=== PATIENT | female | born 1990 | race Caucasian/White ===

== ENCOUNTER → 2016-12-26 | Outpatient (CLI) | payer BC ==
[2016-12-26 10:40] LABS: CH 26.9; CHCM 33.2; HCT 37.7 % (34.0-46.0); HDW 2.38; HGB 13.1 gm/dL (11.4-16.0); MCH 28.2 pg (25.0-35.0); MCHC 34.7 g/dL (31.0-37.0); MCV 81.4 fL (80.0-100.0); RBC 4.63 m/uL (3.80-5.40); RDW 13.3 % (11.5-15.5); WBC 9.3 k/uL (3.8-10.6)
[2016-12-26 11:10] LABS: Glucose 83 mg/dL (74-99); Non-African American GFR(MDRD) >60 (>60 ml/min/1.73 sqM)
[2016-12-26 11:36] LABS: Hepatitis B Surface Ag Index 0.04
== END | disposition home or self-care (01) ==
LOC: LABWHC1 09:53
PROVIDERS: ATTEND Obstetrics & Gynecology
DX: Z34.81 Encounter for supervision of other normal pregnancy, first trimester (principal)
CPT/HCPCS: 36415; 82565; 82947; 85027; 86762; 86780; 86850; 86900; 86901; 87340

== ENCOUNTER 2017-01-18 12:15 | Inpatient (IN) | payer BC ==
[2017-01-18] MEDS ORDERED: SODIUM CHLORIDE 0.9% 1,000 ML IV STA (12:44)
[2017-01-18] MEDS ORDERED: ONDANSETRON 4 MG/2 ML VIAL IVP STA (12:44)
[2017-01-18] MEDS ORDERED: ACETAMINOPHEN TAB 500 MG TAB PO STA (12:51)
[2017-01-18 13:28] LABS: Basophils % (A) 0 %; CH 27.9; CHCM 34.3; Eosinophils # (A) 0.1 k/uL (0-0.7); Eosinophils % (A) 0 %; HCT 34.5 % (34.0-46.0); HDW 2.44; HGB 11.6 gm/dL (11.4-16.0); Luc # (Auto) 0.07; Luc % (Auto) 1; Lymphocytes # (A) 0.8 k/uL (1.0-4.8); Lymphocytes % (A) 8 %; MCH 27.5 pg (25.0-35.0); MCHC 33.7 g/dL (31.0-37.0); MCV 81.5 fL (80.0-100.0); Mean Platelet Volume 7.2; Monocytes # (A) 0.2 k/uL (0-1.0); Monocytes % (A) 2 %; Neutrophils # (A) 9.7 k/uL (1.3-7.7); Neutrophils % (A) 89 %; RBC 4.24 m/uL (3.80-5.40); RDW 14.3 % (11.5-15.5); WBC 10.8 k/uL (3.8-10.6); WBC (Perox) 11.26
[2017-01-18 13:34] LABS: Appearance,Urine Turbid (Clear); Bacteria,Urine Many /hpf; Bilirubin,Urine Negative (Negative); Glucose,Urine (UA) Negative (Negative); Ketones,Urine 4+ (Negative); Leukocyte Esterase,Urine Large (Negative); Mucus,Urine Moderate /hpf; Nitrite,Urine Negative (Negative); PH, Urine 7.5 (5.0-8.0); Particle Count 19225; Protein,Urine 2+ (Negative); RBC,Urine 6 /hpf (0-5); Specific Gravity,Urine 1.021 (1.001-1.035); Squamous Epithelial Cell,Urine 61 /hpf (0-4); UA Billing (MACRO vs. MICRO) MICRO; WBC,Urine 25 /hpf (0-5)
[2017-01-18] MEDS ORDERED: METOCLOPRAMIDE 5 MG/ML 2 ML VIAL IVP STA (13:45)
[2017-01-18 13:59] LABS: ALT 19 U/L (9-52); AST 18 U/L (14-36); Alkaline Phosphatase 60 U/L (38-126); Anion Gap 11 mmol/L; Blood Urea Nitrogen 7 mg/dL (7-17); Calcium 9.3 mg/dL (8.4-10.2); Carbon Dioxide 18 mmol/L (22-30); Chloride 105 mmol/L (98-107); Glucose 88 mg/dL (74-99); Non-African American GFR(MDRD) >60 (>60 ml/min/1.73 sqM); Potassium 3.6 mmol/L (3.5-5.1); Sodium 134 mmol/L (137-145); Total Bilirubin 0.6 mg/dL (0.2-1.3)
[2017-01-18] MEDS ORDERED: ONDANSETRON 4 MG/2 ML VIAL IVP PRN (14:29)
[2017-01-18] MEDS ORDERED: NALOXONE 0.4 MG/ML 1 ML VIAL IV PRN (14:29)
--- NOTE | 2017-01-18 14:42 | ED ---
General Adult HPI - General Chief complaint: Headache Stated complaint: Headache, vomiting-16 wks Time Seen by Provider: 01/18/17 12:43 Source: patient, family, RN notes reviewed Mode of arrival: wheelchair - History of Present Illness Initial comments: 27-year-old female presents with one-day history of nausea vomiting, and frontal headache. Patient is currently 16 weeks . Denies any abdominal pain. Denies diarrhea. Her last bowel was yesterday was normal. Is also having fever and chills, she is found to be febrile the emergency department. Denies back pain, denies dysuria. Her headache is primarily frontal associated with some photophobia. She had cough and congestion for the past 4 days, this is currently resolved. Patient states she had 15+ episodes of vomiting, and anytime she eats she is vomiting. Patient called her HOT DIE PICKER who recommended evaluation in the emergency department - Related Data Home Medications Medication Instructions Recorded Confirmed Acetaminophen [Tylenol] 650 mg PO Q4H PRN 01/18/17 01/18/17 Pnv,Calcium 72/Iron/Folic Acid 1 tab PO DAILY 01/18/17 01/18/17 [ Plus Tablet] Allergies Allergy/AdvReac Type Severity Reaction Status Date / Time amoxicillin [Amoxicillin] Allergy Unknown Rash/Hives Verified 01/18/17 13:20 Review of Systems ROS Statement: Those systems with pertinent positive or pertinent negative responses have been documented in the HPI. ROS Other: All systems not noted in ROS Statement are negative. Constitutional: Reports: fever, chills ENT: Denies: throat pain Respiratory: Denies: cough Endocrine: Reports: fatigue Gastrointestinal: Reports: nausea, vomiting. Denies: abdominal pain Past Medical History Additional Past Medical History / Comment(s): Bicornate uterus; Congenital absence of kidney; History of tibia/fibula fracture-left History of Any Multi-Drug Resistant Organisms: None Reported Past Surgical History: Orthopedic Surgery Past Anesthesia/Blood Transfusion Reactions: No Reported Reaction Past Psychological History: No Psychological Hx Reported Smoking Status: Former smoker Past Alcohol Use History: None Reported Past Drug Use History: None Reported - Past Family History Father Family Medical History: No Reported History General Exam General appearance: alert, in no apparent distress Head exam: Present: atraumatic, normocephalic Eye exam: Present: normal appearance, PERRL ENT exam: Present: normal exam, normal oropharynx, mucous membranes dry, other ( Visual erythema or tonsillar swelling) Neck exam: Absent: normal inspection, meningismus Respiratory exam: Present: normal lung sounds bilaterally. Absent: respiratory distress, wheezes Cardiovascular Exam: Present: normal rhythm, tachycardia GI/Abdominal exam: Present: soft, other (Uterus just below the umbilicus). Absent: distended, tenderness, guarding, rebound Extremities exam: Present: normal inspection, normal capillary refill. Absent: pedal edema Neurological exam: Present: alert, oriented X3, CN II-XII intact. Absent: motor sensory deficit Psychiatric exam: Present: normal affect, normal mood Skin exam: Present: warm, dry Course Vital Signs 01/18/17 01/18/17 12:17 13:30 Temperature 101.9 F H 101.9 F H Pulse Rate 118 H 76 Respiratory 18 17 Rate Blood Pressure 120/59 108/65 O2 Sat by Pulse 96 98 Oximetry - Reevaluation(s) Reevaluation #1: 01/18/17 14:39 On reevaluation, after IV hydration, antiemetics, and Tylenol the patient is feeling much better. Headache is resolved. Medical Decision Making - Medical Decision Making 27-year-old female with a one-day history of profound nausea and vomiting as well as fever and chills. Patient is found to have urinary tract infection with many bacteria and elevated white blood cell count. Patient states she does only have one kidney. Urine is also positive for 4+ ketones consistent with dehydration. Urine culture and blood cultures are obtained. Patient is started on IV hydration, and IV antibiotics in the emergency department. Case is discussed with her HOT DIE PICKER, heart tones are obtained in emergency department 160-180. Patient will be admitted for continued IV hydration and IV antibiotics. Diagnosis: Pyelonephritis in - Lab Data Result diagrams: 01/18/17 13:10 01/18/17 13:10 Lab Results 01/18/17 01/18/17 01/18/17 Range/Units 13:10 13:10 13:10 WBC 10.8 H (3.8-10.6) k/uL RBC 4.24 (3.80-5.40) m/uL Hgb 11.6 (11.4-16.0) gm/dL Hct 34.5 (34.0-46.0) % MCV 81.5 (80.0-100.0) fL MCH 27.5 (25.0-35.0) pg MCHC 33.7 (31.0-37.0) g/dL RDW 14.3 (11.5-15.5) % Plt Count 250 (150-450) k/uL Neutrophils % 89 % Lymphocytes % 8 % Monocytes % 2 % Eosinophils % 0 % Basophils % 0 % Neutrophils # 9.7 H (1.3-7.7) k/uL Lymphocytes # 0.8 L (1.0-4.8) k/uL Monocytes # 0.2 (0-1.0) k/uL Eosinophils # 0.1 (0-0.7) k/uL Basophils # 0.0 (0-0.2) k/uL Sodium 134 L (137-145) mmol/L Potassium 3.6 (3.5-5.1) mmol/L Chloride 105 (98-107) mmol/L Carbon Dioxide 18 L (22-30) mmol/L Anion Gap 11 mmol/L BUN 7 (7-17) mg/dL Creatinine 0.41 L (0.52-1.04) mg/dL Est GFR (MDRD) Af Amer >60 (>60 ml/min/1.73 sqM) Est GFR (MDRD) Non-Af >60 (>60 ml/min/1.73 sqM) Glucose 88 (74-99) mg/dL Calcium 9.3 (8.4-10.2) mg/dL Total Bilirubin 0.6 (0.2-1.3) mg/dL AST 18 (14-36) U/L ALT 19 (9-52) U/L Alkaline Phosphatase 60 (38-126) U/L Total Protein 7.0 (6.3-8.2) g/dL Albumin 4.0 (3.5-5.0) g/dL Lipase 40 (23-300) U/L Urine Color Urine Appearance (Clear) Urine pH (5.0-8.0) Ur Specific [place] (1.001-1.035) Urine Protein (Negative) Urine Glucose (UA) (Negative) Urine Ketones (Negative) Urine Blood (Negative) Urine Nitrite (Negative) Urine Bilirubin (Negative) Urine Urobilinogen (<2.0) mg/dL Ur Leukocyte Esterase (Negative) Urine RBC (0-5) /hpf Urine WBC (0-5) /hpf Ur Squamous Epith Cells (0-4) /hpf Urine Bacteria (None) /hpf Urine Mucus (None) /hpf Urine HCG, Qual Detected (Not Detectd) 01/18/17 Range/Units 13:10 WBC (3.8-10.6) k/uL RBC (3.80-5.40) m/uL Hgb (11.4-16.0) gm/dL Hct (34.0-46.0) % MCV (80.0-100.0) fL MCH (25.0-35.0) pg MCHC (31.0-37.0) g/dL RDW (11.5-15.5) % Plt Count (150-450) k/uL Neutrophils % % Lymphocytes % % Monocytes % % Eosinophils % % Basophils % % Neutrophils # (1.3-7.7) k/uL Lymphocytes # (1.0-4.8) k/uL Monocytes # (0-1.0) k/uL Eosinophils # (0-0.7) k/uL Basophils # (0-0.2) k/uL Sodium (137-145) mmol/L Potassium (3.5-5.1) mmol/L Chloride (98-107) mmol/L Carbon Dioxide (22-30) mmol/L Anion Gap mmol/L BUN (7-17) mg/dL Creatinine (0.52-1.04) mg/dL Est GFR (MDRD) Af Amer (>60 ml/min/1.73 sqM) Est GFR (MDRD) Non-Af (>60 ml/min/1.73 sqM) Glucose (74-99) mg/dL Calcium (8.4-10.2) mg/dL Total Bilirubin (0.2-1.3) mg/dL AST (14-36) U/L ALT (9-52) U/L Alkaline Phosphatase (38-126) U/L Total Protein (6.3-8.2) g/dL Albumin (3.5-5.0) g/dL Lipase (23-300) U/L Urine Color Yellow Urine Appearance Turbid H (Clear) Urine pH 7.5 (5.0-8.0) Ur Specific [place] 1.021 (1.001-1.035) Urine Protein 2+ H (Negative) Urine Glucose (UA) Negative (Negative) Urine Ketones 4+ H (Negative) Urine Blood Negative (Negative) Urine Nitrite Negative (Negative) Urine Bilirubin Negative (Negative) Urine Urobilinogen 3.0 (<2.0) mg/dL Ur Leukocyte Esterase Large H (Negative) Urine RBC 6 H (0-5) /hpf Urine WBC 25 H (0-5) /hpf Ur Squamous Epith Cells 61 H (0-4) /hpf Urine Bacteria Many H (None) /hpf Urine Mucus Moderate H (None) /hpf Urine HCG, Qual (Not Detectd) Disposition Clinical Impression: Pyelonephritis affecting in second trimester Disposition: ADMITTED IP TO THIS [facility] Condition: Stable Referrals: None,Stated [Primary Care Provider] - 1-2 days Decision to Admit Reason: Admit from EC Decision Date: 01/18/17 Decision Time: 14:05
[2017-01-18] MEDS: DEXTROSE 5%-0.45% NACL 1,000 ML IV SCH (19:34)
[2017-01-18] MEDS: ACETAMINOPHEN TAB 325 MG TAB PO PRN (19:38)
[2017-01-19] MEDS: DEXTROSE 5%-0.45% NACL 1,000 ML IV SCH (00:40)
[2017-01-19] MEDS: ACETAMINOPHEN TAB 325 MG TAB PO PRN ×3 (00:41→16:03)
[2017-01-19] MEDS ORDERED: GENTAMICIN PER PHARMACY MISCELLANE PRN (07:06)
--- NOTE | 2017-01-19 07:14 | P.OBCN ---
History of Present Illness Consult date: 01/19/17 Reason for consult: early problem Chief complaint: Fever, pyelonephritis History of present illness: This is a 27-year-old female 3 para 1 at approximate 16 weeks who presents to the emergency room with fevers at home up to the 102. She states she started feeling bad on Saturday and just went to bed. By night she was feeling fevers and chills and vomiting unable to hold anything down. She went to the emergency room on Saturday and was noted to have a urinary tract infection along with fevers of 101-102. She denies feeling any flank pain. She currently states she has not had any further vomiting since being admitted. She denies any dysuria. She denies any shortness of breath or chest pain. Review of Systems Constitutional: Reports chills, Reports chronic headaches, Reports fever Ears, nose, mouth and throat: Reports headache, Denies sore throat Cardiovascular: Denies chest pain, Denies shortness of breath Respiratory: Denies cough Gastrointestinal: Reports nausea, Reports vomiting, Denies abdominal pain Genitourinary: Reports Musculoskeletal: Denies low back pain Neurological: Reports headaches, Reports migraines Past Medical History Additional Past Medical History / Comment(s): Bicornate uterus; Congenital absence of kidney; History of tibia/fibula fracture-left History of Any Multi-Drug Resistant Organisms: None Reported Past Surgical History: Orthopedic Surgery Past Anesthesia/Blood Transfusion Reactions: No Reported Reaction Past Psychological History: No Psychological Hx Reported Smoking Status: Former smoker Past Alcohol Use History: None Reported Past Drug Use History: None Reported - Past Family History Father Family Medical History: No Reported History Medications and Allergies Home Medications Medication Instructions Recorded Confirmed Type Acetaminophen [Tylenol] 650 mg PO Q4H PRN 01/18/17 01/18/17 History Pnv,Calcium 72/Iron/Folic Acid 1 tab PO DAILY 01/18/17 01/18/17 History [ Plus Tablet] Allergies Allergy/AdvReac Type Severity Reaction Status Date / Time amoxicillin [Amoxicillin] Allergy Unknown Rash/Hives Verified 01/18/17 18:49 Exam Osteopathic Statement: *. No significant issues noted on an osteopathic structural exam other than those noted in the History and Physical/Consult. - Vital Signs Vital signs: Vital Signs Temp Pulse Pulse Resp BP BP Pulse Ox 01/19/17 00:00 102.5 F H 98 18 129/72 98 01/18/17 22:00 100.8 F H 110 H 18 115/48 98 01/18/17 20:35 102.0 F H 112 H 20 120/61 97 01/18/17 19:30 103.0 F H 01/18/17 16:58 98.7 F 91 20 121/66 100 01/18/17 15:23 100.8 F H 102 H 20 116/53 96 01/18/17 15:08 100.8 F H 102 H 20 116/53 96 01/18/17 13:30 101.9 F H 76 17 108/65 98 01/18/17 12:17 101.9 F H 118 H 18 120/59 96 Intake and Output 01/18/17 01/19/17 01/19/17 22:59 06:59 14:59 Intake Total 400 Output Total 990 500 Balance -590 -500 Intake: Intake, IV Titration 400 Amount Dextrose 5%-0.45% NaCl 1, 400 000 ml @ 75 mls/hr IV . [id number] [facility] Rx#:[id number] Output: Urine 990 500 Other: Voiding Method Toilet # Voids 1 - OBG Physical Exam Abdomen: bowel sounds normal, no diffuse tenderness Uterus: , nontender Back shows no flank pain. Results Result Diagrams: 01/18/17 13:10 01/18/17 13:10 Abnormal Lab Results - Last 24 Hours (Table) 01/18/17 01/18/17 01/18/17 Range/Units 13:10 13:10 13:10 WBC 10.8 H (3.8-10.6) k/uL Neutrophils # 9.7 H (1.3-7.7) k/uL Lymphocytes # 0.8 L (1.0-4.8) k/uL Sodium 134 L (137-145) mmol/L Carbon Dioxide 18 L (22-30) mmol/L Creatinine 0.41 L (0.52-1.04) mg/dL Urine Appearance Turbid H (Clear) Urine Protein 2+ H (Negative) Urine Ketones 4+ H (Negative) Ur Leukocyte Esterase Large H (Negative) Urine RBC 6 H (0-5) /hpf Urine WBC 25 H (0-5) /hpf Ur Squamous Epith Cells 61 H (0-4) /hpf Urine Bacteria Many H (None) /hpf Urine Mucus Moderate H (None) /hpf Microbiology - Last 24 Hours (Table) 01/18/17 13:10 Urine Culture - Preliminary Urine,Voided Assessment and Plan (1) Pyelonephritis affecting in second trimester Status: Acute Plan: Will discontinue Zofran due to effects. We will switch to Reglan as needed. I'm going to add gentamicin with pharmacy to dose in addition to the ceftriaxone. Continue with Tylenol every 6 hours as needed for fevers or headaches. Will obtain a renal ultrasound. Will obtain CBC as morning. I will continue to monitor closely with you.
[2017-01-19] MEDS ORDERED: METOCLOPRAMIDE 5 MG/ML 2 ML VIAL IVP PRN (07:16)
[2017-01-19 07:52] LABS: Basophils % (A) 0 %; CH 27.9; CHCM 33.6; Eosinophils % (A) 0 %; HCT 32.1 % (34.0-46.0); HDW 2.37; HGB 10.5 gm/dL (11.4-16.0); Luc # (Auto) 0.14; Luc % (Auto) 2; Lymphocytes # (A) 1.4 k/uL (1.0-4.8); Lymphocytes % (A) 18 %; MCH 27.1 pg (25.0-35.0); MCHC 32.6 g/dL (31.0-37.0); MCV 83.3 fL (80.0-100.0); Monocytes # (A) 0.3 k/uL (0-1.0); Monocytes % (A) 4 %; Neutrophils # (A) 6.2 k/uL (1.3-7.7); Neutrophils % (A) 77 %; RBC 3.85 m/uL (3.80-5.40); RDW 14.1 % (11.5-15.5); WBC 8.1 k/uL (3.8-10.6); WBC (Perox) 8.56
[2017-01-19 08:11] LABS: Anion Gap 9 mmol/L; Blood Urea Nitrogen 3 mg/dL (7-17); Calcium 8.8 mg/dL (8.4-10.2); Carbon Dioxide 18 mmol/L (22-30); Chloride 106 mmol/L (98-107); Glucose 88 mg/dL (74-99); Non-African American GFR(MDRD) >60 (>60 ml/min/1.73 sqM); Potassium 3.3 mmol/L (3.5-5.1); Sodium 133 mmol/L (137-145)
--- NOTE | 2017-01-19 09:52 | US ---
EXAMINATION TYPE: US renals and bladder DATE OF EXAM: 01/19/2017 COMPARISON: None. CLINICAL HISTORY: Pyelonephritis and . Urinalysis shows possible kidney infection, born with one kidney, 16 weeks EXAM MEASUREMENTS: Right Kidney: 13.7 x 6.9 x 6.1 cm Right Kidney: wnl, dromedary hump seen Left Kidney: Absent Bladder: distended, wnl as visualized Bilateral Jets not seen IMPRESSION: SOLITARY RIGHT KIDNEY WITHOUT OTHER DEFINITE ABNORMALITY.
[2017-01-19] MEDS: GENTAMICIN 120 MG in SODIUM CHLORIDE 0.9% 100 ML IVPB SCH ×2 (10:14→21:06)
[2017-01-19] MEDS: PRENATAL VIT-IRON-FOLIC ACID 1 EACH CAP PO SCH (11:21)
--- NOTE | 2017-01-19 13:48 | HP ---
CHIEF COMPLAINT: Headache, fever, sneezing and vomiting. HISTORY OF PRESENT ILLNESS: This 16-week woman with a past medical history of bicornuate uterus, congenital absence of kidney, history of tibial/ fibular fracture, left; being followed by Dr. Ramey in the outpatient setting. Apparently was not feeling well on Saturday. The patient feeling tired, the patient sneezing and last night the patient had headache, fever and body aches. The patient also had fever and chills. The patient also had some vague back pain. The patient came to [facility] for further evaluation and treatment. The patient also had some cough and congestion and some photophobia is also reported. In the emergency room the patient had a white count of 10.8 and UTI was suspected. The patient was started on IV antibiotics and admitted for further evaluation and treatment. There is no history of any fever, rigors , chills. No loss of consciousness or seizures. PAST MEDICAL HISTORY: History of bicornuate uterus, congenital absence of kidney. MEDICATIONS: vitamins and Tylenol 650 q4h p.r.n. ALLERGIES: AMOXICILLIN. FAMILY HISTORY: No history of heart attack or strokes in the family. SOCIAL HISTORY: Previous history of smoking. No history of alcohol intake. REVIEW OF SYSTEMS: ENT: No diminished hearing or vision. CARDIOVASCULAR: No angina. RESPIRATORY: As mentioned earlier. GI: As mentioned earlier. : As mentioned earlier.. NERVOUS SYSTEM: No numbness or weakness. IMMUNOLOGY/ALLERGY: No asthma, hayfever. MUSCULOSKELETAL: As mentioned earlier. HEMATOLOGY: No history of anemia. ENDOCRINE: No history of diabetes or hypothyroidism. CONSTITUTIONAL: As mentioned earlier. PSYCHIATRIC: As mentioned earlier. PHYSICAL EXAMINATION: Alert and oriented x3. Pulse 102, blood pressure 116/70 , respirations 20, temperature 100.8, pulse ox 98% on room air. HEENT: Conjunctivae normal. Oral mucosa moist. NECK: No jugular venous distention. No thyroid enlargement, no lymph node enlargement. CARDIOVASCULAR: S1/.S2. RESPIRATIONS: Diminished breath sounds at the bases. No rhonchi, no crackles. ABDOMEN: Soft, nontender. Nontender. No mass palpable. LEGS: No edema, no swelling. NERVOUS SYSTEM: Higher function as mentioned. Moves all four limbs. No focal weakness. LYMPHATICS. No lymph node palpable in neck or axillae. SKIN: No rash. LABS: WBC 10.8. Sodium 134. ASSESSMENT: 1. Acute urinary tract infection with early sepsis, for evaluation. 2. Hyponatremia. 3. Increased WBC. 4. 16 weeks . 5. History of congenital absence of kidney. 6. History of tibia/fibular fracture on the left. 7. History of nicotine dependence. RECOMMENDATIONS AND DISCUSSION: In this 27-year-old woman who presented with multiple complex medical issues, will monitor the patient closely, continue the current medication, continue symptomatic treatment. Otherwise, will repeat labs. Empiric antibiotics initiated. Will obtain cultures. Otherwise, resume home medications, DVT prophylaxis and consult ENTRY LEVEL ACCOUNT MANAGER. Further recommendations to follow. MTDD
[2017-01-19] MEDS ORDERED: POTASSIUM CHLORIDE ER 20 MEQ TAB.ER PO STA (15:09)
[2017-01-19] MEDS: D5-0.45% NACL WITH KCL 40MEQ/L 1,000 ML IV SCH (15:56)
[2017-01-20] MEDS: D5-0.45% NACL WITH KCL 40MEQ/L 1,000 ML IV SCH ×2 (05:33→19:24)
[2017-01-20 07:53] LABS: Basophils % (A) 0 %; CH 27.8; CHCM 33.5; Eosinophils # (A) 0.1 k/uL (0-0.7); Eosinophils % (A) 1 %; HCT 31.8 % (34.0-46.0); HDW 2.45; HGB 10.4 gm/dL (11.4-16.0); Luc # (Auto) 0.14; Luc % (Auto) 2; Lymphocytes # (A) 2.2 k/uL (1.0-4.8); Lymphocytes % (A) 34 %; MCH 27.1 pg (25.0-35.0); MCHC 32.5 g/dL (31.0-37.0); MCV 83.4 fL (80.0-100.0); Mean Platelet Volume 7.1; Monocytes # (A) 0.2 k/uL (0-1.0); Monocytes % (A) 4 %; Neutrophils # (A) 3.9 k/uL (1.3-7.7); Neutrophils % (A) 59 %; RBC 3.82 m/uL (3.80-5.40); RDW 14.2 % (11.5-15.5); WBC 6.5 k/uL (3.8-10.6); WBC (Perox) 6.72
[2017-01-20 08:34] LABS: Anion Gap 8 mmol/L; Blood Urea Nitrogen 2 mg/dL (7-17); Calcium 8.7 mg/dL (8.4-10.2); Carbon Dioxide 19 mmol/L (22-30); Chloride 106 mmol/L (98-107); Glucose 75 mg/dL (74-99); Non-African American GFR(MDRD) >60 (>60 ml/min/1.73 sqM); Potassium 3.8 mmol/L (3.5-5.1); Sodium 133 mmol/L (137-145)
[2017-01-20] MEDS: PRENATAL VIT-IRON-FOLIC ACID 1 EACH CAP PO SCH (09:42)
[2017-01-20] MEDS: GENTAMICIN 120 MG in SODIUM CHLORIDE 0.9% 100 ML IVPB SCH ×2 (09:42→21:02)
--- NOTE | 2017-01-20 10:00 | PN ---
DATE OF SERVICE: 01/19/2017 This 27-year-old woman was admitted with headache, fever and possible UTI, being closely monitored. At this time the patient is on broad spectrum IV antibiotics. Gentamycin was recommended by Dr. Ramey. No fever, no cough. The white count is 8.1. Sodium is 133, potassium 3.3. On exam alert and oriented x3. Pulse is 82, blood pressure 107/60, respirations 18, temperature 101.1. Pulse ox 97% on room air. HEENT: Conjunctivae normal. NECK: No JVD. CARDIOVASCULAR: S1/S2. RESPIRATORY: Diminished breath sounds especially in the bases. Scattered rhonchi. ABDOMEN: Soft, nontender. No mass palpable. LEGS: No swelling. NERVOUS SYSTEM: No focal deficits. LABS: Renal ultrasound shows solitary right kidney, no other abnormalities. ASSESSMENT: 1. Acute urinary tract infection with early sepsis and continued fever. 2. Solitary right kidney. 3. Hyponatremia. 4. Increased WBCs. 5. 16 weeks . 6. History of tibial fracture on the left. 7. History of nicotine dependence. RECOMMENDATIONS AND DISCUSSION: Recommend to continue current medication, continue to monitor, continue symptomatic treatment. Otherwise, at this time I would recommend to continue with IV antibiotics. Follow the cultures. ( ) within normal. Increase ambulation. Further recommendations to follow. MTDD
--- NOTE | 2017-01-20 11:13 | P.PN ---
Progress Note - Text The patient states she is feeling much better today. Her headache is gone. She denies any abdominal pain, nausea or vomiting, or dysuria. She denies any flank or back pain. She did have a temp up to 101.5 last night at approximately 11 PM and did not take any Tylenol and it went down on its own. Her urine culture showed normal genital paulette. Abdomen is soft and nontender. heart tones have been present by Doppler and she is feeling movement. Back is nontender. Extremities show negative Homans. Impression is at approximately 16 weeks, hyperpyrexia of unknown source. Plan is to continue with IV antibiotics for the next 24 hours since her fevers have been steadily coming down. If she does continue to spike temperatures, would suggest consultation with infectious disease. If she stays afebrile over the next 24 hours, may be able to discharge home tomorrow.
[2017-01-20 17:58] VITALS: RESP 20
--- NOTE | 2017-01-21 05:31 | P.PN ---
Progress Note - Text The patient is doing well this morning. She has been afebrile over 24 hours now. She denies any complaints at this time. Abdomen soft and nontender. Positive movement is noted. Impression is hyperpyrexia on no origin, possibly viral gastroenteritis based on nausea and vomiting upon arrival to the hospital. Her urine culture was negative. She has been treated with IV ceftriaxone and gentamicin with normalization of white count and no fever for over 24 hours now. My recommendations are that she can go home on no antibiotics at this time. She does have an appointment to follow-up with me on Saturday for her routine visit. I did tell her she can move this out a week if she wants to. I believe she is stable for discharge at this time.
[2017-01-21] MEDS ORDERED: GENTAMICIN TROUGH DUE 1 EACH MISC MISCELLANE ONE (08:00)
[2017-01-21] MEDS: D5-0.45% NACL WITH KCL 40MEQ/L 1,000 ML IV SCH (08:01)
[2017-01-21] MEDS: PRENATAL VIT-IRON-FOLIC ACID 1 EACH CAP PO SCH (08:01)
[2017-01-21 08:24] VITALS: BP 119/67; PULSE 89; TEMP 99
[2017-01-21 08:32] LABS: Basophils % (A) 0 %; CH 27.4; CHCM 33.6; Eosinophils # (A) 0.2 k/uL (0-0.7); Eosinophils % (A) 3 %; HCT 34.8 % (34.0-46.0); HDW 2.49; HGB 11.6 gm/dL (11.4-16.0); Luc # (Auto) 0.18; Luc % (Auto) 2; Lymphocytes # (A) 1.6 k/uL (1.0-4.8); Lymphocytes % (A) 19 %; MCH 27.4 pg (25.0-35.0); MCHC 33.5 g/dL (31.0-37.0); MCV 81.9 fL (80.0-100.0); Mean Platelet Volume 6.5; Monocytes # (A) 0.3 k/uL (0-1.0); Monocytes % (A) 3 %; Neutrophils # (A) 5.9 k/uL (1.3-7.7); Neutrophils % (A) 72 %; RBC 4.25 m/uL (3.80-5.40); RDW 13.7 % (11.5-15.5); WBC 8.2 k/uL (3.8-10.6); WBC (Perox) 8.28
[2017-01-21] MEDS: GENTAMICIN 120 MG in SODIUM CHLORIDE 0.9% 100 ML IVPB SCH (08:48)
--- NOTE | 2017-01-21 11:56 | PN ---
DATE OF SERVICE: 01/20/2017 This is a 27-year-old woman who is 16 weeks was admitted with possible pyelonephritis. Patient empirically started on empiric antibiotics. Patient had some fever last night, but today is afebrile. No cough, no chest pain, palpitation. On exam, alert and oriented x3. Pulse 84, blood pressure 108/69, respirations 18, temperature is mentioned above , pulse ox of 98% on room air. HEENT: Conjunctivae normal. NECK: No jugular venous distension. CARDIOVASCULAR SYSTEM: S1, S2, muffled. RESPIRATORY: Breath sounds diminished at the bases, a few scattered rhonchi. ABDOMEN: Soft, nontender, no mass palpable. LEGS: No edema, no swelling. NERVOUS SYSTEM: No focal deficits. LABS: WBC is 6.3, hemoglobin is 10.4, sodium is 133. Cultures are negative so far. ASSESSMENT: 1. Acute urinary tract infection with possible early sepsis and continued fever with negative cultures. 2. Solitary right kidney. 3. Hyponatremia. 4. Increased WBC. 5. A 16 week . 6. History of tibial fracture, left. 7. History of nicotine dependence. RECOMMENDATIONS: Recommend to continue with the current medication and continue with the monitoring and symptomatic treatment. Otherwise, at this time I would recommend to continue with the IV antibiotics. Follow the cultures. Further recommendations to follow. See orders for further details. MTDD
[2017-01-21 12:50] LABS: Anion Gap 8 mmol/L; Blood Urea Nitrogen 4 mg/dL (7-17); Calcium 9.3 mg/dL (8.4-10.2); Carbon Dioxide 22 mmol/L (22-30); Chloride 103 mmol/L (98-107); Glucose 74 mg/dL (74-99); Non-African American GFR(MDRD) >60 (>60 ml/min/1.73 sqM); Potassium 4.3 mmol/L (3.5-5.1); Sodium 133 mmol/L (137-145)
--- NOTE | 2017-01-21 16:03 | P.DS ---
Providers Date of admission: 01/18/17 14:30 Attending physician: Christie Chiang Consults: 01/18/17 14:31 Consult Physician Urgent Consulting Provider: Mela Ramey Consult Reason/Comments: Pyelonephritis in Do you want consulting provider notified?: Yes, Notify in am Primary care physician: Stated None Hospital Course: Patient was admitted with fever and sepsis secondary to viral gastroenteritis, patient has contaminated urine sample. I do not believe patient has urinary tract infection or pyelonephritis. I do not believe patient will need any more antibiotic support discharged of the received were 3-4 days of IV antibiotics here. Patient will be discharged today. PHYSICAL EXAMINATION: GENERAL: The patient is alert and oriented x3, not in any acute distress. Well developed, well nourished. HEENT: Pupils are round and equally reacting to light. EOMI. No scleral icterus. No conjunctival pallor. Normocephalic, atraumatic. No pharyngeal erythema. No thyromegaly. CARDIOVASCULAR: S1 and S2 present. No murmurs, rubs, or gallops. PULMONARY: Chest is clear to auscultation, no wheezing or crackles. ABDOMEN: Soft, nontender, nondistended, normoactive bowel sounds. No palpable organomegaly. MUSCULOSKELETAL: No joint swelling or deformity. EXTREMITIES: No cyanosis, clubbing, or pedal edema. NEUROLOGICAL: Gross neurological examination did not reveal any focal deficits. SKIN: No rashes. #1 sepsis secondary to viral gastroenteritis next and #2 solitary right kidney #3 hyponatremia: Hypervolemic hyponatremia. #5 16 week . Patient Condition at Discharge: Stable Plan - Discharge Summary New Discharge Prescriptions: No Action Pnv,Calcium 72/Iron/Folic Acid [ Plus Tablet] 1 tab PO DAILY Acetaminophen [Tylenol] 650 mg PO Q4H PRN PRN Reason: Pain Discharge Medication List Acetaminophen [Tylenol] 650 mg PO Q4H PRN 01/18/17 [History] Pnv,Calcium 72/Iron/Folic Acid [ Plus Tablet] 1 tab PO DAILY 01/18/17 [ History] Follow up Appointment(s)/Referral(s): Gina Burleson, F[facility] [REFERRING] - 01/22/17 3:00 pm Mela Ramey DO [Doctor of Osteopathic Medicine] - 1 Week None,Stated [Primary Care Provider] - 1-2 days Discharge Disposition: HOME SELF-CARE
== END 2017-01-21 12:52 | disposition home or self-care (01) | DRG 872 ==
LOC: EC 12:15 → 6PED 14:30
PROVIDERS: ADMIT Hospitalist; ATTEND Hospitalist
DX: A41.89 Other specified sepsis (principal); Q60.0 Renal agenesis, unilateral; O98.812 Other maternal infectious and parasitic diseases complicating pregnancy, second trimester; E87.1 Hypo-osmolality and hyponatremia; O98.512 Other viral diseases complicating pregnancy, second trimester; O99.352 Diseases of the nervous system complicating pregnancy, second trimester; O99.89 Other specified diseases and conditions complicating pregnancy, childbirth and the puerperium; O34.02 Maternal care for unspecified congenital malformation of uterus, second trimester; G43.909 Migraine, unspecified, not intractable, without status migrainosus; Q51.3 Bicornate uterus; M54.9 Dorsalgia, unspecified; O99.512 Diseases of the respiratory system complicating pregnancy, second trimester; R05 Cough; O99.282 Endocrine, nutritional and metabolic diseases complicating pregnancy, second trimester; B33.8 Other specified viral diseases; B97.89 Other viral agents as the cause of diseases classified elsewhere; A08.4 Viral intestinal infection, unspecified; Z87.891 Personal history of nicotine dependence; Z88.0 Allergy status to penicillin; Z87.81 Personal history of (healed) traumatic fracture; Z3A.16 16 weeks gestation of pregnancy
CPT/HCPCS: 36415; 76770; 80048; 80053; 80170; 81001; 81025; 83605; 83690; 85025; 87040; 87086; 96374; 96375; 99285

== ENCOUNTER 2017-06-12 18:33 | Outpatient (CLI) | payer BC ==
[2017-06-12 18:49] VITALS: BP 135/60; PULSE 86; RESP 15; TEMP 98.4
--- NOTE | 2017-06-23 03:14 | P.MSEPDOC ---
Presenting Problems - Arrival Data Date of Arrival on Unit: 06/12/17 Time of Arrival on Unit: 18:40 Mode of Transport: Ambulatory - Complaint OB-Reason for Admission/Chief Complaint: Possible Onset of Labor Medical History - Information : 3 Para: 1 Term: 1 : 0 Abortions: Spontaneous or Elective: 1 Number of Living Children: 1 - Gestational Age Gestational Age by CARRIE (wks/days): 37 Weeks and 0 Days Review of Systems - Review of Systems Constitutional: No problems Breast: No problems ENT: No problems Cardiovascular: No problems Respiratory: No problems Gastrointestinal: No problems Genitourinary: No problems Musculoskeletal: No problems Neurological: No problems Skin: No problems Vital Signs - Temperature Temperature: 98.4 F Temperature Source: Temporal Artery Scan - Pulse Brachial Pulse Rate: 86 Pulse Assessment Method: Automatic Cuff - Respirations Respiratory Rate: 15 Oxygen Delivery Method: Room Air - Blood Pressure Right Arm Blood Pressure: 135/60 Blood Pressure Mean: 85 Blood Pressure Source: Automatic Cuff Medical Screen Scoring (Pre) - Cervical Exam Dilation: 1-3 cm = 1 Membranes: Intact - Maternal Vital Signs Maternal Temperature: N/A Maternal Blood Pressure: N/A Signs of Preeclampsia: N/A Maternal Respirations: N/A - Pain Assessment Pain Scale Used: Numeric (1 - 10) Pain Intensity: 0 - Total Score Total Score (Pre): 1 - Level of Risk Level of Risk: Low (0-5) Disposition - Disposition OB Disposition: Discharge to home Discharge Date: 06/12/17 Discharge Time: 19:55 I agree with the RN Medical Screening Exam: Yes Risk & Benefit of care provided described in d/c instruction: Yes Diagnosis: FALSE LABOR AT OR AFTER 37 COMPLETED WEEKS OF GESTATION
== END 2017-06-12 19:55 | disposition home or self-care (01) ==
LOC: FBPOP 18:33
PROVIDERS: ATTEND Obstetrics & Gynecology
DX: O47.1 False labor at or after 37 completed weeks of gestation (principal); Z3A.37 37 weeks gestation of pregnancy
CPT/HCPCS: 59025; 99213

== ENCOUNTER 2017-06-17 05:30 | Outpatient (CLI) | payer BC ==
[2017-06-17 07:04] VITALS: BP 133/78; PULSE 84; RESP 16; TEMP 98.3
--- NOTE | 2017-06-23 03:15 | P.MSEPDOC ---
Presenting Problems - Arrival Data Date of Arrival on Unit: 06/17/17 Time of Arrival on Unit: 06:49 Mode of Transport: Ambulatory - Complaint OB-Reason for Admission/Chief Complaint: Possible Onset of Labor Medical History - Information : 3 Para: 1 Term: 1 : 0 Abortions: Spontaneous or Elective: 1 Number of Living Children: 1 - Gestational Age Gestational Age by CARRIE (wks/days): 37 Weeks and 5 Days Review of Systems - Review of Systems Constitutional: No problems Breast: No problems ENT: No problems Cardiovascular: No problems Respiratory: No problems Gastrointestinal: No problems Genitourinary: No problems Musculoskeletal: No problems Neurological: No problems Skin: No problems Vital Signs - Temperature Temperature: 98.3 F Temperature Source: Temporal Artery Scan - Pulse Right Pulse Rate: 84 - Respirations Respiratory Rate: 16 O2 Sat by Pulse Oximetry: 98 - Blood Pressure Right Arm Blood Pressure: 133/78 Blood Pressure Mean: 96 Blood Pressure Source: Automatic Cuff Medical Screen Scoring (Pre) - Cervical Exam Dilation: 4-7 cm = 2 Effacement: More than 50% = 2 Membranes: Intact - Uterine Contractions Frequency: > or = 36 weeks =2 Duration: > 40 seconds = 2 Intensity: N/A - Maternal Vital Signs Maternal Temperature: N/A Maternal Blood Pressure: N/A Signs of Preeclampsia: N/A Maternal Respirations: N/A - Assessment Baseline FHR: 130 Heart Rate - NICHD Category: Category I (Normal) = 0 NST: Reactive Position: N/A - Total Score Total Score (Pre): 8 - Level of Risk Level of Risk: Medium (6-9) Physician Notification (Pre) - Physician Notified Physician Notified Date: 06/17/17 Physician Notified Time: 06:55 Physician/Practitioner Notifed:: Dr Killian - Notification Comment Comment: reported on hx, c/o, vag exam with no change, fhts reactive, irreg cntrx pattern, pt stating cntrx are spacing out and desiring to go home. orders to d/c home with instructions Disposition - Disposition OB Disposition: Discharge to home Discharge Date: 06/17/17 Discharge Time: 06:58 I agree with the RN Medical Screening Exam: Yes Risk & Benefit of care provided described in d/c instruction: Yes Diagnosis: FALSE LABOR AT OR AFTER 37 COMPLETED WEEKS OF GESTATION
== END 2017-06-17 06:58 | disposition home or self-care (01) ==
LOC: FBPOP 05:30
PROVIDERS: ATTEND Obstetrics & Gynecology
DX: O47.1 False labor at or after 37 completed weeks of gestation (principal); Z3A.37 37 weeks gestation of pregnancy
CPT/HCPCS: 59025; 99213

== ENCOUNTER 2017-06-21 13:12 | Inpatient (IN) | payer BC ==
[2017-06-21] MEDS ORDERED: CARBOPROST TROMETHAMINE 250 MCG/ML 1 ML AMP IM PRN (13:25)
[2017-06-21] MEDS ORDERED: METHYLERGONOVINE 0.2 MG/ML 1 ML AMP IM PRN (13:25)
[2017-06-21] MEDS ORDERED: OXYTOCIN 10 UNIT/ML 1 ML VIAL IM PRN (13:25)
[2017-06-21] MEDS ORDERED: LIDOCAINE 1% (PF) 10 MG/ML (30 ML SDV) SQ PRN (13:25)
[2017-06-21] MEDS ORDERED: TERBUTALINE 1 MG/ML VIAL SQ PRN (13:25)
[2017-06-21] MEDS ORDERED: LACTATED RINGERS 1,000 ML IV SCH (13:30)
[2017-06-21 13:32] VITALS: BMI 36.6
[2017-06-21 14:30] LABS: Basophils % (A) 0 %; Eosinophils # (A) 0.2 k/uL (0-0.7); Eosinophils % (A) 2 %; HCT 34.4 % (34.0-46.0); HGB 10.4 gm/dL (11.4-16.0); Hypochromasia Slight; Lymphocytes # (A) 1.7 k/uL (1.0-4.8); Lymphocytes % (A) 17 %; MCH 24.3 pg (25.0-35.0); MCHC 30.3 g/dL (31.0-37.0); Mean Platelet Volume 7.7; Monocytes # (A) 0.2 k/uL (0-1.0); Monocytes % (A) 2 %; Neutrophils % (A) 78 %; Platelet Count 273 k/uL (150-450); RDW 15.5 % (11.5-15.5); WBC 10.3 k/uL (3.8-10.6)
[2017-06-21] MEDS ORDERED: OXYTOCIN 20 UNITS/1000 ML NS 1,000 ML IV SCH ×2 (15:00→17:59)
[2017-06-21] MEDS ORDERED: BUPIVACAINE (PF) 0.25% 30 ML VIAL ONE (16:55)
[2017-06-21] MEDS ORDERED: fentaNYL (PF) 50 MCG/ML 5 ML AMP ONE (16:55)
[2017-06-21] MEDS ORDERED: SODIUM CHLORIDE 0.9% 100 ML BAG ONE (16:55)
--- NOTE | 2017-06-21 17:45 | P.HPOB ---
History of Present Illness H&P Date: 06/21/17 Chief Complaint: contractions, advanced cervical dilation this is a 27-year-old female 3 para 1 with an estimated date of confinement of 07/03/2017, estimated gestational age of 38-2/7 weeks, who presented to labor and delivery for augmentation of labor after being seen in the office today. At her appointment today, she was found to be 6-1/2 cm with a bulging bag. She has been feeling regular contractions. Her cervix was noted to be 4-1/2 cm 1 week ago. course has been essentially uncomplicated. labs: Group B streptococcus-negative Chlamydia-positive early in the , test to cure negative later in the . Gonorrhea-negative Random glucose-83 Hepatitis B surface antigen-negative Hemoglobin-13.1 Syphilis antibody-nonreactive Rubella-immune Blood type-O- Antibody screen-negative Obstetrical ultrasound-normal anatomy One hour Glucola-100 Obstetrical history: . History of 1 miscarriage and 1 delivery at 38-1/2 weeks due to severe preeclampsia. Her delivery was vaginal. Gynecologic history: History of chlamydia treated during this . Social history: She is . She works at a [employer]. Review of Systems Constitutional: Denies chills, Denies fever Eyes: denies blurred vision, denies pain Ears, nose, mouth and throat: Reports headache (occasional), Denies sore throat Cardiovascular: Denies chest pain, Denies shortness of breath Respiratory: Denies cough Gastrointestinal: Reports abdominal pain (contractions) Genitourinary: Reports pelvic pain, Reports Musculoskeletal: Reports low back pain Integumentary: Denies pruritus, Denies rash Neurological: Denies numbness, Denies weakness Past Medical History Additional Past Medical History / Comment(s): Bicornate uterus; Congenital absence of left kidney; History of tibia/fibula fracture-left History of Any Multi-Drug Resistant Organisms: None Reported Past Surgical History: Orthopedic Surgery Past Anesthesia/Blood Transfusion Reactions: No Reported Reaction Past Psychological History: No Psychological Hx Reported Smoking Status: Former smoker Past Alcohol Use History: None Reported Past Drug Use History: None Reported - Past Family History Father Family Medical History: No Reported History Medications and Allergies Home Medications Medication Instructions Recorded Confirmed Type No Known Home Medications [No 06/17/17 06/21/17 History Known Home Medications] Allergies Allergy/AdvReac Type Severity Reaction Status Date / Time amoxicillin [Amoxicillin] Allergy Unknown Rash/Hives Verified 01/18/17 18:49 Exam Osteopathic Statement: *. No significant issues noted on an osteopathic structural exam other than those noted in the History and Physical/Consult. - Vital Signs Vital signs: Vital Signs Temp Pulse Resp BP Pulse Ox 06/21/17 13:14 98.3 F 81 16 130/73 100 Intake and Output 06/21/17 06/21/17 06/21/17 06:59 14:59 22:59 Other: # Voids 1 Weight 90.718 kg Patient Weight 06/22/17 06:59 Weight 90.718 kg ENT: Within normal limits Heart: Regular rate and rhythm Lungs: Clear to auscultation bilaterally Abdomen: Cervix: 6-1/2 cm/60%/-3 station with bulging bag heart tones: Reactive Contractions: Irregular every 5-7 minutes Extremities: Negative Homans Results Result Diagrams: 06/21/17 14:20 Abnormal Lab Results - Last 24 Hours (Table) 06/21/17 Range/Units 14:20 Hgb 10.4 L (11.4-16.0) gm/dL MCH 24.3 L (25.0-35.0) pg MCHC 30.3 L (31.0-37.0) g/dL Neutrophils # 8.0 H (1.3-7.7) k/uL Assessment and Plan (1) 38 weeks gestation of Current Visit: Yes Status: Acute Code(s): Z3A.38 - 38 WEEKS GESTATION OF SNOMED Code(s): 80385170 Plan: Plan is admission for advanced cervical dilation and contractions. Artificial rupture membranes and oxytocin augmentation of labor. Epidural anesthesia when desired. Expectant management.
--- NOTE | 2017-06-21 17:48 | P.PROBDLV ---
Vaginal Delivery Note - . Vaginal Delivery Note: The patient reached complete dilation shortly after sitting up for her epidural. She began pushing. Infant's head came to a crown and then delivered across the perineum in a right occiput anterior lie. Nose and mouth were bulb suctioned at the perineum. Nuchal cord times one was reduced around the body with delivery of the remainder the infant. was placed on mother's abdomen and nose and mouth were again bulb suctioned. Cord was clamped and cut and was taken to warmer for evaluation. A viable male was noted with scores of 8 at 1 minute and 9 at 5 minutes and weight of 7 lbs. 13 oz. Placenta delivered shortly thereafter, intact with a three-vessel cord. Uterus contracted fairly well after oxytocin was given and uterine massage was carried out and bladder was drained with a catheter. Inspection of the perineum revealed a small second-degree perineal laceration. This area was anesthetized with 1% lidocaine and then sutured with 3-0 Vicryl suture in the usual multilayer fashion. Estimated blood loss was approximately 150 mL's. Both mother and are in stable condition.
[2017-06-21] MEDS ORDERED: BENZOCAINE/MENTHOL SPRAY 1 GM/SPRAY AEROSOL TOPICAL PRN (17:59)
[2017-06-21] MEDS ORDERED: diphenhydrAMINE 25 MG CAP PO PRN (17:59)
[2017-06-21] MEDS ORDERED: diphenhydrAMINE 50 MG CAP PO PRN (17:59)
[2017-06-21] MEDS ORDERED: SIMETHICONE 80 MG CHEWABLE PO PRN (17:59)
[2017-06-21] MEDS ORDERED: diphenhydrAMINE 50 MG/ML 1 ML VIAL IVP PRN ×2 (17:59)
[2017-06-21] MEDS ORDERED: ACETAMINOPHEN TAB 325 MG TAB PO PRN (17:59)
[2017-06-21] MEDS ORDERED: WITCH HAZEL 1 EACH MED..PAD TOPICAL PRN (17:59)
[2017-06-21] MEDS ORDERED: LANOLIN CREAM 5 GM TUBE TOPICAL PRN (17:59)
[2017-06-21] MEDS ORDERED: HYDROCORTISONE 2.5% RECTAL CREAM 30 GM TUBE RECTAL PRN (17:59)
[2017-06-21] MEDS ORDERED: ZOLPIDEM 5 MG TAB PO PRN (17:59)
[2017-06-21] MEDS: IBUPROFEN 600 MG TAB PO PRN (18:48)
[2017-06-21] MEDS: SENNOSIDES-DOCUSATE SODIUM 1 EACH TAB PO SCH (21:20)
[2017-06-22] MEDS: IBUPROFEN 600 MG TAB PO PRN ×2 (02:34→11:13)
--- NOTE | 2017-06-22 06:51 | P.DS ---
Providers Date of admission: 06/21/17 13:12 Expected date of discharge: 06/22/17 Attending physician: Mela Ramey - Discharge Diagnosis(es) (1) 38 weeks gestation of Current Visit: Yes Status: Acute Hospital Course: This is a 27-year-old female 3 para 1 at 38-2/7 weeks who presented after being seen in the office and found to be 6-1/2 cm dilated. She has been feeling irregular strong contractions. She underwent artificial rupture of membranes and oxytocin augmentation of labor. She did receive epidural anesthesia. She delivered vaginally a viable male infant on 06/21/2017. Her course has been uncomplicated. She is breast-feeding. Lochia is decreasing. Pain is well-controlled. Vital signs are stable. Abdomen is soft with fundus firm and nontender. Extremities show negative Homans. Impression is status post vaginal delivery day #1. Plan is to discharge home today. Routine instructions are given. She will be given up her prescription for ibuprofen. She already has a breast pump at home. She is advised to call the office if she has any further questions or concerns prior to her appointment time. She is advised follow-up in the office in 6 weeks for visit. Procedures: Oxytocin augmentation of labor Spontaneous vaginal delivery of a viable male on 06/21/2017. Patient Condition at Discharge: Stable Plan - Discharge Summary New Discharge Prescriptions: New Ibuprofen [Motrin] 600 mg PO Q6HR PRN #60 tab PRN Reason: Mild Pain Or Fever >= 100.5 Discharge Medication List Ibuprofen [Motrin] 600 mg PO Q6HR PRN #60 tab 06/22/17 [Rx] Follow up Appointment(s)/Referral(s): Mela Ramey DO [Doctor of Osteopathic Medicine] - 6 Weeks Activity/Diet/Wound Care/Special Instructions: Instructions 1. Do not begin any exercise program for 3 weeks. 2. Do not resume sexual relations for 3 weeks or longer if uncomfortable. 3. You may take tub baths or showers at any time. 4. You may use tampons if desired after 3 weeks. 5. Keep the area of episiotomy (stitches) clean and dry. 6. If you are not nursing, wear a good fitting, supportive bra during the day and limit fluid intake for at least 1 week to prevent breast engorgement. 7. Call the office, [phone], within the next week to make appointment for your 6 week checkup if it has not already been made. 8. Report any of the following occurrences to the doctor promptly: a. Heavy, excessive bleeding b. Chills, fever c. Burning or frequency of urination d. Pain or redness and breasts if nursing e. Increasing pain or swelling in episiotomy (stitches). In addition to the above instructions, the following additional should be followed: 1. No heavy lifting or straining (exercising) until after 6 week checkup. 2. Keep abdominal incision clean and dry: You may wear a dressing if more comfortable. 3. Make office appointment for 10 days after going home or as instructed by her doctor. Discharge Disposition: HOME SELF-CARE
[2017-06-22 07:54] LABS: Basophils % (A) 0 %; Eosinophils # (A) 0.1 k/uL (0-0.7); Eosinophils % (A) 1 %; HCT 27.7 % (34.0-46.0); Hypochromasia Slight; Lymphocytes % (A) 17 %; MCH 24.5 pg (25.0-35.0); MCHC 30.8 g/dL (31.0-37.0); MCV 79.5 fL (80.0-100.0); Mean Platelet Volume 7.3; Monocytes # (A) 0.4 k/uL (0-1.0); Monocytes % (A) 3 %; Neutrophils # (A) 8.6 k/uL (1.3-7.7); Neutrophils % (A) 76 %; Platelet Count 231 k/uL (150-450); RBC 3.49 m/uL (3.80-5.40); WBC 11.3 k/uL (3.8-10.6)
[2017-06-22 07:57] LABS: HGB 8.5 gm/dL (11.4-16.0)
[2017-06-22] MEDS: SENNOSIDES-DOCUSATE SODIUM 1 EACH TAB PO SCH (09:49)
[2017-06-22 09:56] VITALS: RESP 20
[2017-06-22 18:38] VITALS: BP 125/76; PULSE 84; TEMP 98.6
== END 2017-06-22 18:00 | disposition home or self-care (01) | DRG 775 ==
LOC: 4FBP 13:12
PROVIDERS: ADMIT Obstetrics & Gynecology; ATTEND Obstetrics & Gynecology
PROC: 10E0XZZ Delivery of Products of Conception, External Approach (ICD-10-PCS; principal; 2017-06-21)
PROC: 0KQM0ZZ Repair Perineum Muscle, Open Approach (ICD-10-PCS; 2017-06-21)
PROC: 10907ZC Drainage of Amniotic Fluid, Therapeutic from Products of Conception, Via Natural or Artificial Opening (ICD-10-PCS; 2017-06-21)
PROC: 3E0R3NZ Introduction of Analgesics, Hypnotics, Sedatives into Spinal Canal, Percutaneous Approach (ICD-10-PCS; 2017-06-21)
PROC: 00HU33Z Insertion of Infusion Device into Spinal Canal, Percutaneous Approach (ICD-10-PCS; 2017-06-21)
DX: O69.81X0 Labor and delivery complicated by cord around neck, without compression, not applicable or unspecified (principal); Q60.0 Renal agenesis, unilateral; O34.03 Maternal care for unspecified congenital malformation of uterus, third trimester; O70.1 Second degree perineal laceration during delivery; Z3A.38 38 weeks gestation of pregnancy; Z87.891 Personal history of nicotine dependence; Z37.0 Single live birth; Z88.1 Allergy status to other antibiotic agents
CPT/HCPCS: 85025; 88307

== ENCOUNTER 2019-03-23 13:20 | Emergency (ER) | payer BC ==
[2019-03-23 13:25] VITALS: BP 112/70; PULSE 112; RESP 22; TEMP 100.3
[2019-03-23] MEDS ORDERED: ACETAMINOPHEN TAB 325 MG TAB PO STA (14:03)
[2019-03-23] MEDS ORDERED: CLINDAMYCIN 150 MG CAP PO STA (14:03)
[2019-03-23] MEDS ORDERED: methylPREDNISolone SOD SUCCI 125 MG/2 ML VIAL IM STA (14:21)
--- NOTE | 2019-03-23 14:38 | ED ---
General Adult HPI - General Chief complaint: ENT Stated complaint: Sore Throat Time Seen by Provider: 03/23/19 13:59 Source: patient, RN notes reviewed, old records reviewed Mode of arrival: ambulatory Limitations: no limitations - History of Present Illness Initial comments: 29-year-old female patient presents the chief complaint of sore throat since Saturday. Patient is fully vaccinated, denies any other medical conditions. Patient was seen in urgent care prior presented to the ER they sent her for potential peritonsillar abscess. During that evaluation she reportedly had a negative mono and strep test. Systemic: Pt denies fatigue, fever/chills, rash. Pt denies weakness, night sweats, weight loss. Neuro: Pt denies headache, visual disturbances, syncope or pre-syncope. HEENT: Pt denies ocular discharge or irritation, otalgia, rhinorrhea, or notable lymphadenopathy. Cardiopulmonary: Pt denies chest pain, SOB, heart palpitations, dyspnea on exertion. Abdominal/GI: Pt denies abdominal pain, n/v/d. : Pt denies dysuria, burning w/ urination, frequency/urgency. Denies new onset urinary or bowel incontinence. MSK: Pt denies myalgia, loss of strength or function in extremities. Neuro: Pt denies new onset weakness, paresthesias. - Related Data Previous Rx's Medication Instructions Recorded Ibuprofen [Motrin] 600 mg PO Q6HR PRN #60 tab 06/22/17 Clindamycin [Cleocin] 450 mg PO Q8HR 7 Days #63 capsule 03/23/19 predniSONE 50 mg PO DAILY 4 Days #4 tab 03/23/19 Allergies Allergy/AdvReac Type Severity Reaction Status Date / Time amoxicillin [Amoxicillin] Allergy Unknown Rash/Hives Verified 03/23/19 13:25 Review of Systems ROS Statement: Those systems with pertinent positive or pertinent negative responses have been documented in the HPI. ROS Other: All systems not noted in ROS Statement are negative. Past Medical History Additional Past Medical History / Comment(s): Bicornate uterus; Congenital absence of left kidney; History of tibia/fibula fracture-left History of Any Multi-Drug Resistant Organisms: None Reported Past Surgical History: Orthopedic Surgery Past Anesthesia/Blood Transfusion Reactions: No Reported Reaction Past Psychological History: No Psychological Hx Reported Smoking Status: Former smoker Past Alcohol Use History: None Reported Past Drug Use History: None Reported - Past Family History Father Family Medical History: No Reported History General Exam - General Exam Comments Initial Comments: Constitutional: NAD, AOX3, Pt has pleasant affect. HEENT: NC/AT, trachea midline, neck supple, no lymphadenopathy. Posterior pharynx mildly erythematous, +2 right tonsil with exudate, left tonsil +1 without exudates. External ears appear normal, without discharge. Mucous membranes moist. Eyes PERRLA, EOM intact. There is no scleral icterus. No pallor noted. Cardiopulmonary: RRR, no murmurs, rubs or gallops, no JVD noted. Lungs CTAB in anterior and posterior orozco. No peripheral edema. Abdominal exam: Abdomen soft and non-distended. Abdomen non-tender to palpation in all 4 quadrants. Bowel sounds active in LLQ. No hepatosplenomegaly. No ecchymosis Neuro: CN II-XII grossly intact. No nuchal rigidity. No raccon eyes, no jacobson sign, no hemotympanum. No cervical spinal tenderness. MSK: No posterior calf tenderness bilaterally, homans sign negative bilaterally. Posterior tibialis and radial pulse +2 bilaterally. Sensation intact in upper and lower extremities. Full active ROM in upper and lower extremities, 5/5 stregnth. Limitations: no limitations Course Vital Signs 03/23/19 13:22 Temperature 100.3 F H Pulse Rate 112 H Respiratory 22 Rate Blood Pressure 112/70 O2 Sat by Pulse 99 Oximetry Medical Decision Making - Medical Decision Making 29-year-old female patient is ED chief complaint of sore throat. Patient port that she cannot be . Patient vital signs blood fever, mildly elevated heart rate. Physical exam displayed: Posterior pharynx mildly erythematous, +2 right tonsil with exudate, left tonsil +1 without exudates. Patient does have a Amoxil ALLERGY. Patient discharged clindamycin and prednisone, follow-up with primary care provider, return to ER if condition worsens. Case discussed the patient seen by Dr. Ruffin. Disposition Clinical Impression: Pharyngitis Disposition: HOME SELF-CARE Condition: Stable Instructions (If sedation given, give patient instructions): Pharyngitis (ED) Additional Instructions: Patient to adhere to previously discussed treatment plan and will take medication(s) as directed. Patient to follow up with PCP in 1-2 days. Patient to return to ED if symptoms do not improve. Take medications as directed. Follow up with primary care provider tomorrow. Return to ER if condition worsens. Prescriptions: Clindamycin [Cleocin] 450 mg PO Q8HR 7 Days #63 capsule predniSONE 50 mg PO DAILY 4 Days #4 tab Is patient prescribed a controlled substance at d/c from ED?: No Referrals: Gavin Alfaro III, MD [Primary Care Provider] - 1-2 days
== END 2019-03-23 14:39 | disposition home or self-care (01) ==
LOC: EC 13:20
DX: J02.9 Acute pharyngitis, unspecified (principal); R00.0 Tachycardia, unspecified; Q60.0 Renal agenesis, unilateral; Z87.891 Personal history of nicotine dependence; Z88.0 Allergy status to penicillin
CPT/HCPCS: 99283; 96372; J2930

== ENCOUNTER 2021-07-22 16:41 | Observation (INO) | payer BC, OTHER ==
[2021-07-22 17:10] LABS: Appearance,Urine Cloudy (Clear); Bacteria,Urine Rare /hpf; Bilirubin,Urine Negative (Negative); Blood,Urine Small (Negative); Color,Urine Light Yellow; Glucose,Urine (UA) Negative (Negative); Ketones,Urine Trace (Negative); Leukocyte Esterase,Urine Large (Negative); Mucus,Urine Rare /hpf; Nitrite,Urine Negative (Negative); PH, Urine 7.5 (5.0-8.0); Protein,Urine 1+ (Negative); RBC,Urine 6 /hpf (0-5); Specific Gravity,Urine 1.006 (1.001-1.035); Squamous Epithelial Cell,Urine <1 /hpf (0-4); Urobilinogen,Urine <2.0 mg/dL (<2.0); WBC,Urine >182 /hpf (0-5)
--- NOTE | 2021-07-22 17:39 | US ---
EXAMINATION TYPE: US renals and bladder DATE OF EXAM: 07/22/2021 COMPARISON: US 2017 CLINICAL HISTORY: US right kidney, rule out stones. Back pain, patient is 26 weeks EXAM MEASUREMENTS: Right Kidney: 13.4 x 6.5 x 6.8 cm Right Kidney: hydronephrosis, no stones seen Left Kidney: congenitally absent Bladder: not fully distended No nephrolithiasis is seen. No masses are identified. The urinary bladder is underdistended but tiara ears anechoic. IMPRESSION: 1. Moderate right hydronephrosis. No sonographic evidence of nephrolithiasis. 2. The left kidney is absent.
--- NOTE | 2021-07-22 18:09 | P.HPOB ---
History of Present Illness H&P Date: 07/22/21 Chief Complaint: Right flank pain Patient is a 31-year-old at 24 weeks gestation who arrives complaining of back pain that started yesterday. She was admitted a sharp and over her kidney area. She has only the right kidney and she was instructed to come to labor and delivery. On evaluation a urinalysis was done showing 182 white blood cells with clumps and with her description in history early pyelonephritis has been diagnosed and we'll start IV antibiotics. Culture and sensitivity will also be done. CBC has been ordered along with kidney function. Prior to this her course had been generally unremarkable. heart tracing is noted and she is feeling movement with heart rate in the 140s to 150s range. She is aware that she likely will need at least 48 hours of IV antibiotics and will plan CBC today and again at some point either tomorrow or Saturday morning depending on what the CBC shows. We'll be starting Rocephin IV. She does have a rash ALLERGY to penicillin but relates that it was simply rationales when she was maybe 5 or 6 results suggest no other not there is any other ALLERGIES to other medications. On physical exam her vital signs otherwise are stable. She is afebrile. Her heart is regular lungs are clear. Abdomen is soft no evidence of contraction. heart tones are ordered again noted in the 140s to 150s. She does however have significant flank tenderness and costovertebral angle tenderness. Ultrasound was done and no evidence of stone is noted, only hydronephrosis which is not uncommon in . On the right side. Assessment intrauterine at 24 weeks with acute pyelonephritis Plan IV antibiotics and pain control. Past Medical History Additional Past Medical History / Comment(s): Bicornate uterus; Congenital absence of left kidney; History of tibia/fibula fracture-left History of Any Multi-Drug Resistant Organisms: None Reported Past Surgical History: Orthopedic Surgery Past Anesthesia/Blood Transfusion Reactions: No Reported Reaction Past Psychological History: No Psychological Hx Reported Past Alcohol Use History: None Reported Past Drug Use History: None Reported - Past Family History Father Family Medical History: No Reported History Medications and Allergies Home Medications Medication Instructions Recorded Confirmed Type Ibuprofen [Motrin] 600 mg PO Q6HR PRN #60 tab 06/22/17 Rx Clindamycin [Cleocin] 450 mg PO Q8HR 7 Days #63 capsule 03/23/19 Rx predniSONE 50 mg PO DAILY 4 Days #4 tab 03/23/19 Rx Allergies Allergy/AdvReac Type Severity Reaction Status Date / Time amoxicillin [Amoxicillin] Allergy Unknown Rash/Hives Verified 03/23/19 13:25 Exam Osteopathic Statement: *. No significant issues noted on an osteopathic structural exam other than those noted in the History and Physical/Consult. Intake and Output 07/22/21 07/22/21 07/22/21 06:59 14:59 22:59 Other: Weight 73.936 kg Results Abnormal Lab Results - Last 24 Hours (Table) 07/22/21 Range/Units 16:53 Urine Appearance Cloudy H (Clear) Urine Protein 1+ H (Negative) Urine Ketones Trace H (Negative) Urine Blood Small H (Negative) Ur Leukocyte Esterase Large H (Negative) Urine RBC 6 H (0-5) /hpf Urine WBC >182 H (0-5) /hpf Urine WBC Clumps Many H (None) /hpf Urine Bacteria Rare H (None) /hpf Urine Mucus Rare H (None) /hpf
[2021-07-22] MEDS: LACTATED RINGERS 1,000 ML IV SCH (18:21)
[2021-07-22] MEDS: ACETAMINOPHEN TAB 325 MG TAB PO PRN ×2 (18:25→22:39)
[2021-07-22 20:21] LABS: ALT <6 U/L (4-34); AST 28 U/L (14-36); African American GFR (CKD) >90 (>60 ml/min/1.73 sqM); Alkaline Phosphatase <20 U/L (38-126); Anion Gap 11 mmol/L; Blood Urea Nitrogen 4 mg/dL (7-17); Calcium 7.5 mg/dL (8.4-10.2); Carbon Dioxide 12 mmol/L (22-30); Chloride 106 mmol/L (98-107); Non-African American GFR(CKD) >90 (>60 ml/min/1.73 sqM); Sodium 129 mmol/L (137-145); Total Bilirubin 1.1 mg/dL (0.2-1.3); Total Protein 4.1 g/dL (6.3-8.2)
[2021-07-22 20:42] LABS: Glucose 45 mg/dL (74-99)
[2021-07-22 20:43] LABS: Potassium 4.6 mmol/L (3.5-5.1)
[2021-07-22 22:01] LABS: Basophils % (A) 0 %; Eosinophils # (A) 0.1 k/uL (0-0.7); Eosinophils % (A) 1 %; HCT 31.4 % (34.0-46.0); HGB 10.2 gm/dL (11.4-16.0); Lymphocytes # (A) 1.1 k/uL (1.0-4.8); Lymphocytes % (A) 11 %; MCH 28.8 pg (25.0-35.0); MCHC 32.5 g/dL (31.0-37.0); MCV 88.6 fL (80.0-100.0); Mean Platelet Volume 7.3; Monocytes # (A) 0.3 k/uL (0-1.0); Monocytes % (A) 3 %; Neutrophils # (A) 8.7 k/uL (1.3-7.7); Neutrophils % (A) 84 %; Platelet Count 238 k/uL (150-450); RBC 3.54 m/uL (3.80-5.40); RDW 12.8 % (11.5-15.5); WBC 10.4 k/uL (3.8-10.6)
[2021-07-23] MEDS: ACETAMINOPHEN TAB 325 MG TAB PO PRN (08:31)
--- NOTE | 2021-07-23 08:51 | P.PN ---
Progress Note - Text Progress Note Date: 07/23/21 Patient is doing much better this morning. She relates that her pain is significant significantly improved and the plan will be to continue care for now and hopefully be able to switch her over to oral and about external discharge home. All questions are answered for her at this time. Her vital signs are stable and afebrile. It is noted that her white blood cell count yesterday was only 10. Hopefully we have this caught early enough that it will affect the any further. All the questions are answered for her and we will plan to continue care for now.
[2021-07-23] MEDS: LACTATED RINGERS 1,000 ML IV SCH ×2 (23:22→23:23)
[2021-07-24] MEDS: LACTATED RINGERS 1,000 ML IV SCH (03:11)
[2021-07-24 06:53] LABS: Basophils % (A) 1 %; Eosinophils # (A) 0.3 k/uL (0-0.7); Eosinophils % (A) 5 %; HCT 30.3 % (34.0-46.0); HGB 9.9 gm/dL (11.4-16.0); Lymphocytes # (A) 1.3 k/uL (1.0-4.8); Lymphocytes % (A) 19 %; MCH 29.4 pg (25.0-35.0); MCHC 32.8 g/dL (31.0-37.0); MCV 89.6 fL (80.0-100.0); Mean Platelet Volume 7.1; Monocytes # (A) 0.3 k/uL (0-1.0); Monocytes % (A) 4 %; Neutrophils # (A) 4.8 k/uL (1.3-7.7); Neutrophils % (A) 71 %; Platelet Count 203 k/uL (150-450); RBC 3.38 m/uL (3.80-5.40); RDW 12.4 % (11.5-15.5); WBC 6.9 k/uL (3.8-10.6)
[2021-07-24 07:55] VITALS: BP 95/51; PULSE 73; RESP 16; TEMP 97.8
--- NOTE | 2021-07-24 09:26 | P.DS ---
Providers Date of admission: 07/22/21 17:44 Expected date of discharge: 07/24/21 Attending physician: Mela Ramey Primary care physician: Stated None Hospital Course: This is a 31-year-old female at about 24 weeks, well known to me who presented with right flank pain along with nausea and vomiting. She was presumptively treated with IV antibiotics for presumed pyelonephritis. She is almost asymptomatic now with no pain and no further nausea or vomiting. She has had no fever for over 48 hours. She is feeling good movement. Impression is pyelonephritis. Land is to discharge home today. Since she has been afebrile for over 48 hours on IV antibiotics, no further antibiotics are necessary. She will follow up in the office tomorrow for her regularly scheduled appointment with me. Patient Condition at Discharge: Stable Plan - Discharge Summary New Discharge Prescriptions: New Acetaminophen Tab [Tylenol] 650 mg PO Q4HR PRN tab PRN Reason: Mild Pain Or Fever >= 100.5 Discontinued Ibuprofen [Motrin] 600 mg PO Q6HR PRN #60 tab PRN Reason: Mild Pain Or Fever >= 100.5 Clindamycin [Cleocin] 450 mg PO Q8HR 7 Days #63 capsule predniSONE 50 mg PO DAILY 4 Days #4 tab Discharge Medication List Acetaminophen Tab [Tylenol] 650 mg PO Q4HR PRN tab 07/24/21 [Rx] Follow up Appointment(s)/Referral(s): Mela Ramey DO [Doctor of Osteopathic Medicine] - 1-2 Days Activity/Diet/Wound Care/Special Instructions: Activity as tolerated. Diet as tolerated. Discharge Disposition: HOME SELF-CARE
== END 2021-07-24 10:54 | disposition home or self-care (01) ==
LOC: FBPOP 16:41 → INTOOBSV 17:44 → OBSVTOIN 17:44 → 4FBP 17:44 → UNDODISIN 07-24 10:54 → UNDODISOB 07-24 10:54
PROVIDERS: ADMIT Obstetrics & Gynecology; ATTEND Obstetrics & Gynecology
DX: O23.02 Infections of kidney in pregnancy, second trimester (principal); Q60.0 Renal agenesis, unilateral; N10 Acute pyelonephritis; O34.02 Maternal care for unspecified congenital malformation of uterus, second trimester; Q51.3 Bicornate uterus; O21.2 Late vomiting of pregnancy; Z88.8 Allergy status to other drugs, medicaments and biological substances; Z3A.24 24 weeks gestation of pregnancy
CPT/HCPCS: 96365; 80053; 85025 ×2; 81001; 87086; 87077; 87186; 76770; G0463; G0378; J0696 ×3; 99213

== ENCOUNTER 2021-08-25 23:00 | Outpatient (CLI) | payer OTHER ==
[2021-08-25 23:31] LABS: Amorphous Sediment,Urine Rare /hpf; Appearance,Urine Cloudy (Clear); Bacteria,Urine Occasional /hpf; Bilirubin,Urine Negative (Negative); Blood,Urine Trace (Negative); Color,Urine Yellow; Glucose,Urine (UA) Negative (Negative); Ketones,Urine Trace (Negative); Leukocyte Esterase,Urine Large (Negative); Nitrite,Urine Negative (Negative); PH, Urine 6.5 (5.0-8.0); Protein,Urine Trace (Negative); RBC,Urine 7 /hpf (0-5); Specific Gravity,Urine 1.006 (1.001-1.035); Squamous Epithelial Cell,Urine 2 /hpf (0-4); Urobilinogen,Urine <2.0 mg/dL (<2.0); WBC,Urine >182 /hpf (0-5)
[2021-08-25 23:41] LABS: Basophils % (A) 0 %; Eosinophils # (A) 0.3 k/uL (0-0.7); Eosinophils % (A) 2 %; HCT 32.8 % (34.0-46.0); HGB 10.6 gm/dL (11.4-16.0); Lymphocytes # (A) 1.6 k/uL (1.0-4.8); Lymphocytes % (A) 14 %; MCH 27.9 pg (25.0-35.0); MCHC 32.2 g/dL (31.0-37.0); MCV 86.5 fL (80.0-100.0); Mean Platelet Volume 7.4; Monocytes # (A) 0.5 k/uL (0-1.0); Monocytes % (A) 4 %; Neutrophils # (A) 9.2 k/uL (1.3-7.7); Neutrophils % (A) 77 %; Platelet Count 275 k/uL (150-450); RBC 3.79 m/uL (3.80-5.40); WBC 11.9 k/uL (3.8-10.6)
[2021-08-26 03:43] VITALS: BP 128/67; PULSE 106; RESP 16; TEMP 98.3
--- NOTE | 2021-08-27 12:37 | P.MSEPDOC ---
Presenting Problems - Arrival Data Date of Arrival on Unit: 08/25/21 Time of Arrival on Unit: 23:00 Mode of Transport: Ambulatory - Complaint OB-Reason for Admission/Chief Complaint: Signs/Symptoms UTI Comment: Patient arrives to triage with complaints of strong smelling urine, right sided. pain radiating towards her back, and frequency. Patient was hospitalized earlier this. year with a kidney infection and she states the symptoms resemble when that happened. Patient only has a right kidney. She states symptoms started earlier this morning. Medical History - Information : 4 Para: 2 Term: 2 : 0 Abortions: Spontaneous or Elective: 1 Number of Living Children: 2 - Gestational Age Gestational Age by CARRIE (wks/days): 31 Weeks and 3 Days - History Sexually Transmitted Diseases: HSV Review of Systems - Review of Systems Constitutional: No problems Breast: No problems ENT: No problems Cardiovascular: No problems Respiratory: No problems Gastrointestinal: No problems Genitourinary: Urgency, Increased frequency Musculoskeletal: No problems Neurological: No problems Skin: No problems Vital Signs - Temperature Temperature: 98.3 F Temperature Source: Oral - Pulse Right Brachial Pulse Rate: 106 Pulse Assessment Method: Automatic Cuff - Respirations Respiratory Rate: 16 Oxygen Delivery Method: Room Air O2 Sat by Pulse Oximetry: 98 - Blood Pressure Right Arm Blood Pressure: 128/67 Blood Pressure Mean: 87 Blood Pressure Source: Automatic Cuff Medical Screen Scoring - Assessment - Baby A Baseline FHR: 130 Heart Rate - NICHD Category: Category I (Normal) NST: Reactive Physician Notification - Physician Notified Physician Notified Date: 08/25/21 Physician Notified Time: 00:00 Physician: Mela Ramey Order Received: Yes - Notification Comment Comment: RN read urinalysis and CBC results to Dr. Ramey. Dr. Ramey would like patient to. receive a dose of Kefzol 2g IVPB while in triage. She states she will phone in a. prescription for antibiotics to the patients preferred pharmacy in the AM. Patient. updated on plan of care. Maternal Triage Index - Maternal Triage Index Presenting for scheduled procedure w/no complaint: No - Stat/Priority 1 Stat Priority 1: No - Urgent/Priority 2 Urgent Priority 2: No - Prompt/Priority 3 Prompt Priority 3: No - Non-Urgent/Priority 4 Non-Urgent Priority 4: Yes Criteria Met for Priority 4: non-urgent symptoms of dysuria Disposition - Disposition OB Disposition: Discharge to home Discharge Date: 08/26/21 Discharge Time: 00:38 I agree with the RN Medical Screening Exam: Yes Case reviewed; plan agreed upon as documented in EMR&OBIX.: Yes Diagnosis: INFECTIONS OF KIDNEY IN , THIRD TRIMESTER
== END 2021-08-26 00:38 | disposition home or self-care (01) ==
LOC: FBPOP 23:00
PROVIDERS: ATTEND Obstetrics & Gynecology
DX: O23.03 Infections of kidney in pregnancy, third trimester (principal); N15.9 Renal tubulo-interstitial disease, unspecified; Z3A.31 31 weeks gestation of pregnancy; Z88.1 Allergy status to other antibiotic agents; Z87.891 Personal history of nicotine dependence
CPT/HCPCS: 59025; 96365; 85025; 81001; 87086; G0463; J0690; 87077; 87186; 99213

== ENCOUNTER 2021-09-08 19:48 | Observation (INO) | payer OTHER ==
[2021-09-08 20:22] LABS: Appearance,Urine Turbid (Clear); Bilirubin,Urine Negative (Negative); Blood,Urine Moderate (Negative); Color,Urine Yellow; Glucose,Urine (UA) Negative (Negative); Ketones,Urine 2+ (Negative); Leukocyte Esterase,Urine Large (Negative); Mucus,Urine Occasional /hpf; Nitrite,Urine Positive (Negative); Protein,Urine 2+ (Negative); RBC,Urine 41 /hpf (0-5); Squamous Epithelial Cell,Urine 2 /hpf (0-4); Urobilinogen,Urine <2.0 mg/dL (<2.0); WBC,Urine >182 /hpf (0-5)
[2021-09-08 21:03] LABS: Basophils # (A) 0.1 k/uL (0-0.2); Basophils % (A) 0 %; Eosinophils # (A) 0.3 k/uL (0-0.7); Eosinophils % (A) 2 %; HCT 32.3 % (34.0-46.0); HGB 10.5 gm/dL (11.4-16.0); Lymphocytes # (A) 1.6 k/uL (1.0-4.8); Lymphocytes % (A) 12 %; MCH 27.7 pg (25.0-35.0); MCHC 32.4 g/dL (31.0-37.0); MCV 85.4 fL (80.0-100.0); Mean Platelet Volume 7.8; Monocytes # (A) 0.6 k/uL (0-1.0); Monocytes % (A) 4 %; Neutrophils # (A) 10.6 k/uL (1.3-7.7); Neutrophils % (A) 80 %; Platelet Count 287 k/uL (150-450); RBC 3.78 m/uL (3.80-5.40); RDW 12.7 % (11.5-15.5); WBC 13.2 k/uL (3.8-10.6)
[2021-09-08] MEDS ORDERED: ONDANSETRON 4 MG/2 ML VIAL IVP PRN (21:46)
[2021-09-08] MEDS ORDERED: SODIUM CHLORIDE 0.9% 1,000 ML IV SCH (22:00)
--- NOTE | 2021-09-09 08:34 | P.HPOB ---
History of Present Illness H&P Date: 09/09/21 Chief Complaint: UTI 31 year old presents at 33 weeks 2 days with some flank pain and UTI symptoms. She only has 1 kidney and was recently treated for UTI, but did not f inish all of her antibiotics. The urinalysis here appears to be consistent with a urinary tract infection but the urine will be sent out for culture. Patient has nausea and vomiting in triage so Patient will be admitted for IV antibiotics. Review of Systems All systems: negative Constitutional: Denies chills, Denies fever Eyes: denies blurred vision, denies pain Ears, nose, mouth and throat: Denies headache, Denies sore throat Cardiovascular: Denies chest pain, Denies shortness of breath Respiratory: Denies cough Gastrointestinal: Denies abdominal pain, Denies diarrhea, Denies nausea, Denies vomiting Genitourinary: Denies dysuria, Denies hematuria Musculoskeletal: Denies myalgias Integumentary: Denies pruritus, Denies rash Neurological: Denies numbness, Denies weakness Psychiatric: Denies anxiety, Denies depression Endocrine: Denies fatigue, Denies weight change Past Medical History Additional Past Medical History / Comment(s): Bicornate uterus; Congenital absence of left kidney; History of tibia/fibula fracture-left History of Any Multi-Drug Resistant Organisms: None Reported Past Surgical History: Orthopedic Surgery Past Anesthesia/Blood Transfusion Reactions: No Reported Reaction Smoking Status: Former smoker - Past Family History Father Family Medical History: No Reported History Medications and Allergies Home Medications Medication Instructions Recorded Confirmed Type Acetaminophen Tab [Tylenol] 650 mg PO Q4HR PRN tab 07/24/21 08/25/21 Rx Allergies Allergy/AdvReac Type Severity Reaction Status Date / Time amoxicillin [Amoxicillin] Allergy Unknown Rash/Hives Verified 08/25/21 23:09 Exam Osteopathic Statement: *. No significant issues noted on an osteopathic structural exam other than those noted in the History and Physical/Consult. Vital Signs Temp Pulse Resp BP BP Pulse Ox 09/09/21 06:16 97.7 F 89 14 108/61 98 09/08/21 22:22 98.5 F 86 14 118/66 96 09/08/21 21:40 98.0 F 104 H 18 127/72 97 Intake and Output 09/08/21 09/09/21 09/09/21 22:59 06:59 14:59 Other: # Voids 4 Weight 76.204 kg Heart: Regular rate and rhythm Lungs: Clear to auscultation bilaterally Abdomen: Soft, nontender Extremities: Negative Homans sign Results Result Diagrams: 09/08/21 20:55 Abnormal Lab Results - Last 24 Hours (Table) 09/08/21 09/08/21 Range/Units 19:55 20:55 WBC 13.2 H (3.8-10.6) k/uL RBC 3.78 L (3.80-5.40) m/uL Hgb 10.5 L (11.4-16.0) gm/dL Hct 32.3 L (34.0-46.0) % Neutrophils # 10.6 H (1.3-7.7) k/uL Urine Appearance Turbid H (Clear) Urine Protein 2+ H (Negative) Urine Ketones 2+ H (Negative) Urine Blood Moderate H (Negative) Urine Nitrite Positive H (Negative) Ur Leukocyte Esterase Large H (Negative) Urine RBC 41 H (0-5) /hpf Urine WBC >182 H (0-5) /hpf Urine WBC Clumps Many H (None) /hpf Urine Mucus Occasional H (None) /hpf Microbiology - Last 24 Hours (Table) 09/08/21 19:55 Urine Culture - Preliminary Urine,Clean Catch Assessment and Plan (1) 33 weeks gestation of Current Visit: Yes Status: Acute Code(s): Z3A.33 - 33 WEEKS GESTATION OF SNOMED Code(s): 09568719 (2) Pyelonephritis affecting in third trimester Current Visit: Yes Status: Acute Code(s): O23.03 - INFECTIONS OF KIDNEY IN , THIRD TRIMESTER SNOMED Code(s): 47627971825125 Plan: 1. Admit to family place 2. IV fluids and IV antibiotics 3. Culture urine
--- NOTE | 2021-09-09 08:38 | P.DS ---
Providers Date of admission: 09/08/21 21:45 Expected date of discharge: 09/09/21 Attending physician: Mela Ramey Primary care physician: Stated None - Discharge Diagnosis(es) (1) 33 weeks gestation of Current Visit: Yes Status: Acute (2) Pyelonephritis affecting in third trimester Current Visit: Yes Status: Acute Hospital Course: Patient presented with urinary tract and infection symptoms and signs. She was treated with IV antibiotics, fluids and held for observation. heart tones were reactive and category 1. Patient's symptoms improved greatly with a few doses of IV antibiotics. She is able to hold food down ambulate and void without difficulty. She will be discharged home on Keflex 4 times a day for 7 days and then may need to go on daily antibiotic prophylaxis to prevent further kidney infections during . Plan - Discharge Summary New Discharge Prescriptions: New Cephalexin [Keflex] 500 mg PO Q6HR 7 Days #28 cap No Action Acetaminophen Tab [Tylenol] 650 mg PO Q4HR PRN tab PRN Reason: Mild Pain Or Fever >= 100.5 Discharge Medication List Acetaminophen Tab [Tylenol] 650 mg PO Q4HR PRN tab 07/24/21 [Rx] Cephalexin [Keflex] 500 mg PO Q6HR 7 Days #28 cap 09/09/21 [Rx] Follow up Appointment(s)/Referral(s): Mela Ramey DO [Doctor of Osteopathic Medicine] - 09/13/21 Discharge Disposition: HOME SELF-CARE
[2021-09-09 09:24] VITALS: TEMP 98.1
[2021-09-09 12:21] VITALS: BP 114/59; PULSE 84; RESP 14
--- NOTE | 2021-09-11 06:27 | P.MSEPDOC ---
Presenting Problems - Arrival Data Date of Arrival on Unit: 09/08/21 Time of Arrival on Unit: 19:50 Mode of Transport: Ambulatory - Complaint OB-Reason for Admission/Chief Complaint: Other Comment: pt presents to triage after calling Dr Killian due to symptoms of kidney. infection including rt flank pain that radiates down towards bladder, increased urinary freq and urgency. cloudy foul smelling urine. pt provided UA sample upon arrival in triage. rates pain 3. states took tylenol. pt states only has 1 kidney from Medical History - Information : 4 Para: 2 Term: 2 Abortions: Spontaneous or Elective: 1 Number of Living Children: 2 - Gestational Age Gestational Age by CARRIE (wks/days): 33 Weeks and 2 Days - History Comment: preeclampsia last pregnacy. different father this baby Review of Systems - Review of Systems Constitutional: No problems Breast: No problems ENT: No problems Cardiovascular: No problems Respiratory: No problems Gastrointestinal: No problems Genitourinary: Urgency, Increased frequency Musculoskeletal: No problems Neurological: No problems Skin: No problems Comment: Nausea and vomitin Vital Signs - Temperature Temperature: 98.1 F Temperature Source: Oral - Pulse Right Sitting Pulse Rate: 84 Pulse Assessment Method: Automatic Cuff - Respirations Respiratory Rate: 14 Oxygen Delivery Method: Room Air - Blood Pressure Left Arm Blood Pressure: 114/59 Blood Pressure Mean: 77 Blood Pressure Source: Automatic Cuff Right Arm Blood Pressure: 121/68 Blood Pressure Mean: 85 Blood Pressure Source: Automatic Cuff Medical Screen Scoring - Assessment - Baby A Baseline FHR: 135 Heart Rate - NICHD Category: Category I (Normal) NST: Reactive Physician Notification - Physician Notified Physician Notified Date: 09/08/21 Physician Notified Time: 21:41 Physician: Dr Killian New Order Received: Yes - Notification Comment Comment: Dr Killian had called in orders for CBC and UA prior to pts arrival. Dr Killian called with report CBC results, UA results, reactive nst, vomiting,. vss, orders received to admit pt for iv antibiotics. See orders for all orders. pt. updated with plan of care Maternal Triage Index - Maternal Triage Index Presenting for scheduled procedure w/no complaint: No - Stat/Priority 1 Stat Priority 1: No - Urgent/Priority 2 Urgent Priority 2: No - Prompt/Priority 3 Prompt Priority 3: No - Non-Urgent/Priority 4 Non-Urgent Priority 4: Yes Criteria Met for Priority 4: symptoms kidney infection. Disposition - Disposition OB Disposition: Admit Discharge Date: 09/09/21 Discharge Time: 12:53 I agree with the RN Medical Screening Exam: Yes Case reviewed; plan agreed upon as documented in EMR&OBIX.: Yes Diagnosis: ACUTE PYELONEPHRITIS
== END 2021-09-09 12:54 | disposition home or self-care (01) ==
LOC: FBPOP 19:48 → OBSVTOIN 21:45 → 4FBP 21:45 → INTOOBSV 21:45 → UNDODISOB 09-09 12:54 → UNDODISIN 09-09 12:54
PROVIDERS: ADMIT Obstetrics & Gynecology; ATTEND Obstetrics & Gynecology
DX: O23.03 Infections of kidney in pregnancy, third trimester (principal); N12 Tubulo-interstitial nephritis, not specified as acute or chronic; Q60.0 Renal agenesis, unilateral; O34.03 Maternal care for unspecified congenital malformation of uterus, third trimester; Q51.3 Bicornate uterus; O21.2 Late vomiting of pregnancy; Z3A.33 33 weeks gestation of pregnancy; Z87.891 Personal history of nicotine dependence; Z88.0 Allergy status to penicillin; Z87.440 Personal history of urinary (tract) infections; Z87.59 Personal history of other complications of pregnancy, childbirth and the puerperium
CPT/HCPCS: 59025; 96361 ×2; 96365; 96366; 85025; 81001; 87086; 87077; 87186; G0463; G0378 ×2; J0690 ×2; 99213

== ENCOUNTER → 2022-04-06 | Outpatient (CLI) | payer OTHER ==
--- NOTE | 2022-04-06 12:48 | US ---
EXAMINATION TYPE: US pelvic complete DATE OF EXAM: 04/06/2022 COMPARISON: NONE CLINICAL HISTORY: Q51.3 BICORNATE UTERUS. Bicornuate uterus. TECHNIQUE: Transabdominal (TA). Transabdominal sonographic images of the pelvis were acquired. EXAM MEASUREMENTS: Uterus: 8.4 x 3.9 x 8.3 cm Endometrial Stripe: rt. 1.2 cm lt. 1.3 cm Right Ovary: 2.7 x 1.4 x 3.0 cm Left Ovary: 3.2 x 1.5 x 1.8 cm 1. Uterus: Anteverted Bicornuate wnl 2. Endometrium: wnl 3. Right Ovary: wnl 4. Left Ovary: Cystic area 2.0 x 1.6 x 1.3 cm 5. Bilateral Adnexa: wnl 6. Posterior cul-de-sac: wnl IMPRESSION: Bicornuate uterus without evidence for acute process.
== END | disposition home or self-care (01) ==
LOC: RADUSWWP 10:19
PROVIDERS: ATTEND Obstetrics & Gynecology
DX: Q51.3 Bicornate uterus (principal)
CPT/HCPCS: 76856

== ENCOUNTER → 2023-04-11 | Outpatient (CLI) | payer OTHER ==
[2023-04-11 16:44] LABS: Blood Urea Nitrogen 11.2 mg/dL (9.0-27.0); Calcium 10.4 mg/dL (8.7-10.3); Carbon Dioxide 24.2 mmol/L (21.6-31.8); Chloride 102 mmol/L (96-109); Glucose 68 mg/dL (70-110); Potassium 4.4 mmol/L (3.5-5.5); Sodium 140 mmol/L (135-145)
[2023-04-11 16:55] LABS: HCT 37.5 % (37.2-46.3); MCH 27.6 pg (27.0-32.0); MCV 86.4 FL (80.0-97.0); Mean Platelet Volume 10.3 FL (9.5-12.2); NRBC Per 100 WBC 0 X 10*3/uL (0.00-0.01); Platelet Count 289 X 10*3/uL (140-440); RBC 4.34 X 10*6/uL (4.10-5.20); RDW 14.3 % (11.5-14.5); WBC 6.17 X 10*3/uL (4.50-10.00)
[2023-04-11 16:56] LABS: Basophils # (A) 0.04 X 10*3/uL (0.00-0.10); Basophils % (A) 0.6 %; Eosinophils # (A) 0.36 X 10*3/uL (0.04-0.35); Eosinophils % (A) 5.8 %; Lymphocytes # (A) 1.77 X 10*3/uL (0.90-5.00); Lymphocytes % (A) 28.7 %; Monocytes # (A) 0.28 X 10*3/uL (0.20-1.00); Monocytes % (A) 4.5 %; Neutrophils % (A) 60.1 %
[2023-04-11 17:47] LABS: Appearance,Urine Clear (Clear); Bilirubin,Urine Negative (Negative); Blood,Urine Negative (Negative); Color,Urine Yellow (Yellow); Ketones,Urine Negative (Negative); Nitrite,Urine Negative (Negative); PH, Urine 6.5; Specific Gravity,Urine 1.006 (1.001-1.030); Urobilinogen,Urine 0.2 E.U./DL
== END | disposition home or self-care (01) ==
LOC: LABPAT 09:41
PROVIDERS: ATTEND Obstetrics & Gynecology
DX: Z01.812 Encounter for preprocedural laboratory examination (principal); N81.9 Female genital prolapse, unspecified; N81.10 Cystocele, unspecified; R35.0 Frequency of micturition
CPT/HCPCS: 80048; 81003; 85025; 86850; 86900; 86901; 87086

== ENCOUNTER 2023-04-18 05:33 | Observation (INO) | payer OTHER ==
[2023-04-16 15:40] VITALS: BMI 25.2
--- NOTE | 2023-04-17 15:28 | P.HPOB ---
History of Present Illness H&P Date: 04/17/23 Chief Complaint: Uterine prolapse with cystocele and rectocele, urinary inco ntinence This is a 33 y.o. female, 4, para 3, who presents for total laparoscopic hysterectomy with bilateral salpingectomy with Davinci and diagnostic cystoscopy, possible total abdominal hysterectomy due to uterine prolapse with cystocele and rectocele. Dr. Gore will be performing a sacrocolpopexy also for urinary stress incontinence. She complains of perineal pressure, vaginal mass, constipation and urinary incontinence that has worsened since the of her last child. Pelvic ultrasound showed bicornate uterus measuring 8.4 x 3.9 x 8.3 cm, small left ovarian cyst measuring 2 cm and normal endometrium on both horns. OB Hx: . History of 2 vaginal deliveries at term and 1 delivery. She also had 1 miscarriage. [employer] Hx: History of genital HSV. Currently using condoms for control. Social Hx: . Unemployed. Review of Systems Constitutional: Denies chills, Denies fever Eyes: denies blurred vision, denies pain Ears, nose, mouth and throat: Denies headache, Denies sore throat Cardiovascular: Denies chest pain, Denies shortness of breath Respiratory: Denies cough Gastrointestinal: Reports constipation, Denies abdominal pain, Denies diarrhea, Denies nausea, Denies vomiting Genitourinary: Reports dysmenorrhea, Reports pelvic pain, Reports prolapse symptoms, Reports stress incontinence, Reports urge incontinence Menstruation: Reports period heavy Musculoskeletal: Denies myalgias Integumentary: Denies pruritus, Denies rash Neurological: Denies numbness, Denies weakness Psychiatric: Denies anxiety, Denies depression Endocrine: Reports fatigue, Reports weight change Past Medical History Additional Past Medical History / Comment(s): prolapse bladder, Bicornate uterus; Congenital absence of left kidney; History of tibia/fibula fracture-left History of Any Multi-Drug Resistant Organisms: None Reported Past Surgical History: Orthopedic Surgery Additional Past Surgical History / Comment(s): Orif Left tibia/fibula fx-1 screw remains Past Anesthesia/Blood Transfusion Reactions: No Reported Reaction Additional Past Anesthesia/Blood Transfusion Reaction / Comment(s): no hx blood transfusion Past Psychological History: No Psychological Hx Reported Smoking Status: Former smoker Past Alcohol Use History: Rare Past Drug Use History: None Reported - Past Family History Father Family Medical History: No Reported History Mother Family Medical History: No Reported History Medications and Allergies Home Medications Medication Instructions Recorded Confirmed Type No Known Home Medications 09/27/21 04/16/23 History Allergies Allergy/AdvReac Type Severity Reaction Status Date / Time amoxicillin [Amoxicillin] Allergy Unknown Rash/Hives Verified 04/18/23 06:17 Exam Osteopathic Statement: *. No significant issues noted on an osteopathic structural exam other than those noted in the History and Physical/Consult. HEENT: within normal limits Heart: regular rate and rhythm Lungs: clear to auscultation bilaterally Abdomen: soft, non-tender Pelvic: uterus anteverted, with 1st degree prolapse, 3rd degree cystocele and 2nd degree rectocele. There is a vaginal septum noted on left side of the vagina, cervix is not visible on this side. Extremities: neg. Lindsay's. Assessment and Plan (1) Cystocele with uterine prolapse Current Visit: No Status: Acute Code(s): N81.4 - UTEROVAGINAL PROLAPSE, UNSPECIFIED SNOMED Code(s): 1351998888 (2) Rectocele Current Visit: No Status: Acute Code(s): N81.6 - RECTOCELE SNOMED Code(s): 8916506 (3) Urinary incontinence Current Visit: No Status: Acute Code(s): R32 - UNSPECIFIED URINARY INCONTINENCE SNOMED Code(s): 124904489 (4) Menorrhagia Current Visit: No Status: Acute Code(s): N92.0 - EXCESSIVE AND FREQUENT MENSTRUATION WITH REGULAR CYCLE SNOMED Code(s): 475737980 Plan: Will proceed with total laparoscopic hysterectomy with bilateral salpingectomy with Davinci and diagnostic cystoscopy, possible total abdominal hysterectomy with bilateral salpingectomy. Dr. Gore with perform sacrocolpopexy. I have discussed the risks, benefits, and alternative therapies for the above- mentioned procedure and for both sedation/anesthesia as well as necessary blood products administration, if indicated, as they pertain to this patient. The p atient has indicated her understanding and acceptance of the risks and procedures discussed.
--- NOTE | 2023-04-17 18:19 | P.HPIHPCON ---
History of Present Illness H&P Date: 04/16/23 Chief Complaint: Cystocele, pelvic organ prolapse This is 33-year-old female history of pelvic organ prolapse. She is symptomatic from her prolapse. Option of observation, versus robotic sacrocolpopexy versus vaginal repair was discussed with her in detail. She agreed to proceed with a robotic sacral colpopexy this is going to be a combined case with Dr. Ramey she will be doing the hysterectomy. Discussed with her with a robotic sacralcolpopexy I will be using mesh, discussed risk which includes but not limited to mesh erosion into the bladder, vagina, rectum. Discussed also risks of surgery including injury to nearby organs, bleeding and infection. Discussed also the potential of developing stress incontinence post prolapse repair. Risk of anesthesia was also discussed. She understood all the risk and agreed to proceed with a robotic sacral colpopexy Consent for Procedure: I have explained the operation/procedure to the patient, including the risks, benefits, side effects, alternative therapies (including not receiving the pr oposed treatment or service), the likelihood of the patient achieving his/her goals, and potential recuperation problems for the procedure/sedation/analgesia, as well as any blood products, if indicated. I also explained to the patient the risks, benefits and side effects of the alternatives, as well as the risks related to not receiving the proposed procedure, care, treatment, or services. Past Medical History Additional Past Medical History / Comment(s): Bicornate uterus; Congenital absence of left kidney; History of tibia/fibula fracture-left History of Any Multi-Drug Resistant Organisms: None Reported Past Surgical History: Orthopedic Surgery Past Anesthesia/Blood Transfusion Reactions: No Reported Reaction Past Psychological History: No Psychological Hx Reported Smoking Status: Former smoker Past Alcohol Use History: None Reported Past Drug Use History: None Reported - Past Family History Father Family Medical History: No Reported History Mother Family Medical History: No Reported History Medications and Allergies Home Medications Medication Instructions Recorded Confirmed Type No Known Home Medications 09/27/21 04/16/23 History Allergies Allergy/AdvReac Type Severity Reaction Status Date / Time amoxicillin [Amoxicillin] Allergy Unknown Rash/Hives Verified 04/16/23 15:15 Surgical - Exam - General no distress, no pain - Eyes normal ocular movement, no pale - ENT normal nares, normal mucosa - Respiratory normal expansion, normal respiratory effort - Abdomen Abdomen: soft, non tender Assessment and Plan Assessment: Or for robotic sacralcolpopexy, this will be combined case with Dr. Ramey
[~2023-04-18 05:33] MED LIST: CLINDAMYCIN 600 MG in DEXTROSE 5% IN WATER 50 ML IVPB PRN; GENTAMICIN 120 MG in SODIUM CHLORIDE 0.9% 100 ML IVPB PRN
[2023-04-18] MEDS ORDERED: LIDOCAINE 1% (10MG/ML) FOR IV START INTRADERMA PRN (05:57)
[2023-04-18] MEDS ORDERED: MIDAZOLAM 2 MG/2 ML VIAL IV PRN (05:57)
[2023-04-18] MEDS ORDERED: DEXAMETHASONE SOD PHOSPHATE 4 MG/ML 1 ML VIAL IV ONE (05:57)
[2023-04-18] MEDS ORDERED: HYDROmorphone 0.5 MG/0.5 ML SYRINGE IVP PRN (05:57)
[2023-04-18] MEDS: LACTATED RINGERS 1,000 ML IV SCH (06:16)
[2023-04-18] MEDS: ONDANSETRON 4 MG/2 ML VIAL IVP ONE ×2 (06:54→12:47)
[2023-04-18] MEDS ORDERED: fentaNYL (PF) 50 MCG/ML 2 ML AMP IVP ONE ×2 (07:14)
[2023-04-18] MEDS ORDERED: MIDAZOLAM 2 MG/2 ML VIAL IVP ONE (07:14)
[2023-04-18] MEDS ORDERED: NEOSTIGMINE 1 MG/ML 10 ML VIAL ONE (07:40)
[2023-04-18] MEDS ORDERED: KETOROLAC 15 MG/ML 1 ML VIAL ONE (07:40)
[2023-04-18] MEDS ORDERED: MIDAZOLAM 2 MG/2 ML VIAL ONE (07:40)
[2023-04-18] MEDS ORDERED: SODIUM CHLORIDE 0.9% (PF) 10 ML VIAL ONE (07:40)
[2023-04-18] MEDS ORDERED: PROPOFOL 10 MG/ML 20 ML VIAL IV ONE (07:40)
[2023-04-18] MEDS ORDERED: fentaNYL (PF) 50 MCG/ML 2 ML AMP ONE (07:40)
[2023-04-18] MEDS ORDERED: ROCURONIUM 10 MG/ML (5 ML VIAL) IV ONE (07:40)
[2023-04-18] MEDS ORDERED: ePHEDrine 50 MG/ML 1 ML VIAL ONE (07:40)
[2023-04-18] MEDS ORDERED: SUCCINYLCHOLINE CHLORIDE 200 MG/10 ML VIAL IV ONE (07:40)
[2023-04-18] MEDS ORDERED: PHENYLEPHRINE-0.9% NACL SYG 1,000 MCG/10 ML SYRINGE ONE (07:40)
[2023-04-18] MEDS ORDERED: ROPIVACAINE 5 MG/ML 30 ML VIAL ONE (07:40)
[2023-04-18] MEDS ORDERED: LIDOCAINE 1% INJ 10MG/ML (20 ML MDV) ONE (07:40)
[2023-04-18] MEDS ORDERED: GLYCOPYRROLATE 0.2 MG/ML 2 ML VIAL ONE (07:40)
[2023-04-18] MEDS ORDERED: BUPIVACAINE (PF) 0.25% 30 ML VIAL SQ ONE ×2 (08:17)
[2023-04-18] MEDS ORDERED: LACTATED RINGERS 1,000 ML IV ONE ×2 (08:55→12:29)
--- NOTE | 2023-04-18 09:04 | P.ANPRN ---
Procedure Note - Anesthesia - Nerve Block Performed Bilateral Erector Spinae Single Date of Procedure: 04/18/23 Procedure Start Time: 07:13 Procedure Stop Time: 07:28 Location of Patient: PreOp Indication: Acute Post-Operative Pain Sedation Type: Sedate with meaningful contact maintained Preparation: Sterile Prep Position: Sitting Catheter: None Needle Types: Pajunk Needle Gauge: 21 Ultrasound used to visualize needle placement: Yes Ultrasound used to observe medication spread: Yes Injectate: Other (see comment) (10 ml+ NS 10 ml) Blood Aspirated: No Pain Paresthesia on Injection Noted: No Resistance on Injection: Normal Image Stored and Saved: Yes
--- NOTE | 2023-04-18 09:54 | P.OP ---
Date of Procedure: 04/18/23 Preoperative Diagnosis: 1. Cystocele with uterine prolapse and rectocele. 2. Menorrhagia with regular cycle. 3. Urinary stress incontinence. 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 female, 4, para 3, who presents for total laparoscopic hysterectomy with bilateral salpingectomy with Davinci and diagnostic cystoscopy, possible total abdominal hysterectomy due to uterine prolapse with cystocele and rectocele. Dr. Gore will be performing a sacrocolpopexy also for urinary stress incontinence. She complains of perineal pressure, vaginal mass, constipation and urinary incontinence that has worsened since the of her last child. Pelvic ultrasound showed bicornate uterus measuring 8.4 x 3.9 x 8.3 cm, small left ovarian cyst measuring 2 cm and normal endometrium on both horns. Operative Findings: Bicornuate uterus is noted with one cervix and vertical vaginal septum. Patient has known absence of left kidney. Normal ovaries are noted. Normal tubes are visualized. Description of Procedure: The patient was taken to the operating room where she is placed in the dorsal lithotomy position on a pink pad. Her arms are tucked at her sides and cushioned. When she is correctly position, anesthesia was given. Tilt test was performed. She is prepped and draped in the normal sterile fashion. There is noted to be a vertical vaginal septum with a hole right before the cervix. She does have a bulbous cervix. A suture of 0 Vicryl is tied around the anterior and posterior portions of the stalk and then the piece of vaginal septum is then removed with Metzenbaum scissors. The upper part of the tied off portion was then sutured with 0 Vicryl suture in a running locked fashion for hemostasis. Next a weighted speculum was placed in the patient's vagina. A right angle retractor is used to visualize the cervix. The anterior lip of the cervix is grasped with a single-tooth tenaculum. Uterus is sounded to 9 cm. Cervix is gently dilated with Maza dilators. Next the cervix is measured at 4 cm. 0 Vicryl stitches are placed at the 3 and 9:00 positions on the cervix and held. Next the HUMI manipulator is placed within the cervix and then the 0 Vicryl sutures are brought through the HUMI and then the cervical cup is pressed against the cervix until the click is heard. Next the bladder Love catheter is inserted. Gloves are changed and attention is turned to the abdomen. The uterus is anteverted and then marked on the abdomen. An incision is made above the umbilicus approximately 8 cm above the top of the uterus and then a 5 mm disposable bladeless trocar is inserted under direct visualization with low flow. Once inside high flow is turned on and intra-abdominal contents were inspected. Another incision is made on the right side approximately 8 cm lateral to the umbilicus in the midline and a 8 mm da Tennille port is placed under direct visualization. The same procedure is carried out on the left side. Next an residential assistant port is placed approximately 6 cm superior to the left da Tennille port and lateral to the camera port using a 12 mm trocar under direct visualization. Next the 5 mm camera sleeved is replaced with an 8 mm da Tennille port. Next the da Tennille robot is docked to the patient from her right side. The ports are attached to the arms. Smoke evacuator is also attached. The camera is inserted and then a monopolar scissors is placed through the right port and a vessel sealer was placed through the left port under direct visualization. Energy is attached to both ports. At this time I broke scrub to go to the robot console. The end of the left fallopian tube is grasped by the residential assistant and the vessel sealer is used to cauterize and cut the mesosalpinx. The fallopian tube is then removed through the residential assistant port. Next the uterine ovarian on the left is grasped with the vessel sealer and cauterized and cut. Next the round ligament is grasped with the vessel sealer cauterized and cut. The broad ligament was then opened up posteriorly with monopolar cautery. Uterine arteries are then grasped with the vessel sealer, cauterize, and cut. Monopolar scissors were then used to carefully dissect the bladder reflection and the bladder flap is created. Next attention is turned to the right side of the pelvis. The end of the right fallopian tube is grasped with the vessel sealer, cauterize, and then cut. This was carried out on the remainder of the tube and then the tube is removed from the field. The uterine ovarian ligament on the right side is then grasped with the vessel sealer, cauterize, and cut. The round ligament was also grasped with the vessel sealer, cauterized and then cut. The posterior leaf of the broad ligament is then opened up to the uterosacral area. Uterine arteries are grasped with vessel sealer and then cauterized and cut. Next the uterus is retroverted and the balloon is inflated. Monopolar scissors are used to cut through the vaginal cuff along the HUMI cuff anteriorly. This is carried around to the right side again using monopolar and bipolar energy. The uterus is anteverted and then the posterior cuff is cut along the HUMI cuff using monopolar scissors. The remainder of the left side of the cuff is removed with monopolar and bipolar energy. Once the uterus is freed it is removed through the vagina. Monopolar and bipolar energy are used to cauterize any small bleeders left behind. Next the arms are switched out to the right arm with Lennox suture cut and the left arm with a Robbin grasper. An O- Stratafix suture is then used to suture from the right side of the cuff across to the left side in a running fashion after securing the suture with the small loop on the end. Once the left side of the cuff was reached, a couple more sutures were placed going towards the right side to secure the suture. Suture was then cut and removed from the field. Irrigation was carried out. Good hemo stasis was noted. Picture was taken at the beginning of the procedure. Both ovaries appeared normal. Next the instruments are removed from the arms. I regowned and cystoscopy was then performed. The right ureteral orifices was visualized with flow noted. A left ureteral orifice was noted but no left kidney is present. Cystoscopy was then completed and Love catheter was replaced. Clear urine was noted. All sponge and needle counts are correct. Dr. Gore took over at this point to proceed with his sacral colpopexy.
--- NOTE | 2023-04-18 12:36 | P.OP ---
Date of Procedure: 04/18/23 Preoperative Diagnosis: Cystocele Postoperative Diagnosis: Same Procedure(s) Performed: Robotic Sacrocolpopexy Implants: Coloplast Y mesh Anesthesia: GILBERTOA Surgeon: Guy Gore Estimated Blood Loss (ml): 25 Pathology: none sent Condition: stable Indications for Procedure: This is 33-year-old female history of pelvic organ prolapse. She is symptomatic from her prolapse. Option of observation, versus robotic sacrocolpopexy versus vaginal repair was discussed with her in detail. She agreed to proceed with a robotic sacral colpopexy this is going to be a combined case with Dr. Ramey she will be doing the hysterectomy. Discussed with her with a robotic sacralcolpopexy I will be using mesh, discussed risk which includes but not limited to mesh erosion into the bladder, vagina, rectum. Discussed also risks of surgery including injury to nearby organs, bleeding and infection. Discussed also the potential of developing stress incontinence post prolapse repair. Risk of anesthesia was also discussed. She understood all the risk and agreed to proceed with a robotic sacral colpopexy Description of Procedure: She was taken to the OR and administered general anesthesia and placed in lithotomy position. After the hysterectomy was completed by Dr. Ramey at this time I placed an 12 mm sales support assistant port along the right quadrant. Next the robot was read docked. This time inspection of the peritoneal cavity was performed. Of note along the vaginal cuff along the right side it was not completely closed, additionally the peritoneal layer was pulled to the cuff closure which distorted the bladder anatomy. Given this finding decision was made to take down the vaginal cuff sutures. The cuff was closed using 20V lock in running fashion. Inspection of the closure showed no evidence of any defect. Attention was then carried to the prolapse With firm upward traction on the vagina and angle downwards, and with the monopolar scissors and fenestrated bipolar and the bladder was reflected off the vagina. Minor bleeding points were controlled with bipolar. Once the anterior dissection was completed the attention was directed to the posterior dissection. The sales support assistant pushed the sizer in an upwards and the rectum was completely dissected off the vagina down to the perineal body. Again all minor bleeding points were coagulated. Tension was then directed to the sacral promontory. The sigmoid was reflected to the left with the fourth arm, and an incision was made on the peritoneum over the sacral promontory. The entire sacral promontory was dissected, and the fat was excised to expose adequate amount of periosteum and bone to place 2 layers of sutures. Hemostasis was confirmed. The peritoneum posteriorly was incised from the sacral promontory to the vaginal opening to facilitate placement of the mesh. Attention was now directed to the Y mesh. The Y mesh was trimmed to the necessary size and introduced into the body through the 12 mm port. The Y mesh was placed over the vagina with one limb each on the anterior and posterior vaginal wall. Using 2-0 Ethibond interrupted sutures 3 layers of sutures were placed thereby fixing the mesh to the anterior vaginal wall. Care was taken to advance the mesh all the way distally. Attention was then directed to the posterior vaginal wall and the mesh was fixed to the posterior vaginal wall using 2 layers of 2-0 Ethibond, 2 sutures in each layer. Again the sutures were placed as distally as possible to the perineal body. Attention was taken so as to not enter the vagina with the sutures. Once the 2 limbs of the Y mesh was securely placed, attention was directed to the sacral promontory. The sales support assistant was asked to push the sizer firmly superiorly and the single Lembert of the Y mesh was then fixed to the sacral promontory in 2 layers with interrupted sutures. Gortex interrupted sutures were used to fix the mesh to the periosteum of the sacral promontory. Once this was completed the sizer was removed from the vagina and inspection of the vagina with a speculum showed complete resolution of the cystocele Hemostasis was again confirmed. A 2-0 lock was then used to close the peritoneum incision so as to extrapertonialize the mesh completely. All the sutures and mesh pieces were removed. A count was performed which was correct. And the abdomen was desufflated and all ports were removed. All the incisions were closed with 4-0 Monocryl subcuticular sutures and the patient was sent to recovery in stable condition with the Love catheter
[2023-04-18] MEDS ORDERED: ONDANSETRON 4 MG/2 ML VIAL IVP PRN (12:51)
[2023-04-18] MEDS ORDERED: ZOLPIDEM 5 MG TAB PO PRN (12:51)
[2023-04-18] MEDS ORDERED: diphenhydrAMINE 50 MG/ML 1 ML VIAL IVP PRN (12:51)
[2023-04-18] MEDS ORDERED: METOCLOPRAMIDE 5 MG/ML 2 ML VIAL IVP PRN (12:51)
[2023-04-18] MEDS ORDERED: ACETAMINOPHEN IV (For NPO) 1,000 MG in EMPTY BAG 1 BAG IVPB ONE (14:45)
[2023-04-18] MEDS: SENNOSIDES-DOCUSATE SODIUM 1 EACH TAB PO SCH ×2 (17:43→21:14)
[2023-04-18] MEDS: KETOROLAC 15 MG/ML 1 ML VIAL IVP PRN (18:23)
[2023-04-18] MEDS: IBUPROFEN 600 MG TAB PO PRN (20:19)
[2023-04-19] MEDS: ACETAMINOPHEN TAB 325 MG TAB PO PRN ×2 (05:41→16:08)
[2023-04-19 08:54] LABS: Basophils # (A) 0.03 X 10*3/uL (0.00-0.10); Basophils % (A) 0.3 %; Eosinophils # (A) 0.16 X 10*3/uL (0.04-0.35); Eosinophils % (A) 1.5 %; HCT 32.1 % (37.2-46.3); HGB 10.4 d/dL (12.0-15.0); Lymphocytes # (A) 2.77 X 10*3/uL (0.90-5.00); Lymphocytes % (A) 25.4 %; MCH 27.7 pg (27.0-32.0); MCHC 32.4 d/dL (32.0-37.0); MCV 85.4 FL (80.0-97.0); Mean Platelet Volume 9.8 FL (9.5-12.2); Monocytes # (A) 0.68 X 10*3/uL (0.20-1.00); Monocytes % (A) 6.2 %; NRBC Per 100 WBC 0 X 10*3/uL (0.00-0.01); Neutrophils # (A) 7.25 X 10*3/uL (1.80-7.70); Neutrophils % (A) 66.3 %; Platelet Count 244 X 10*3/uL (140-440); RBC 3.76 X 10*6/uL (4.10-5.20); RDW 14.3 % (11.5-14.5); WBC 10.92 X 10*3/uL (4.50-10.00)
[2023-04-19] MEDS: SENNOSIDES-DOCUSATE SODIUM 1 EACH TAB PO SCH ×2 (09:20→20:02)
[2023-04-19] MEDS: KETOROLAC 15 MG/ML 1 ML VIAL IVP PRN ×3 (09:20→23:44)
[2023-04-19] MEDS: LACTATED RINGERS 1,000 ML IV SCH (09:20)
--- NOTE | 2023-04-19 11:37 | P.PN ---
Subjective Progress Note Date: 04/19/23 Principal diagnosis: Status post robotic total laparoscopic hysterectomy with bilateral salpingectomy and sacral colpopexy postoperative day #1 Patient is still in quite a bit of pain. She has not passed any flatus or bowel movement yet. Bleeding has been minimal. She is urinating without difficulty. She does feel like she is burping but nothing is coming out rectally yet. Objective - Vital Signs Vital signs: Vital Signs Temp 97.8 F 04/19/23 07:23 Pulse 55 L 04/19/23 07:23 Resp 18 04/19/23 07:23 BP 96/59 04/19/23 07:23 Pulse Ox 98 04/19/23 07:23 FiO2 Intake & Output 04/18/23 04/19/23 04/19/23 18:59 06:59 18:59 Intake Total 2057 240 Output Total 650 Balance 1407 240 Weight 63.9 kg Intake: IV 7 Intake, IV Titration 240 Amount Lactated Ringers 1,000 ml 240 @ 0 mls/hr IV [email or web address] Rx#:[id number] Output: Urine 570 Uretheral (Love) 45 Estimated Blood Loss 80 - Constitutional General appearance: Present: mild distress - Gastrointestinal Gastrointestinal Comment(s): Abdomen is mildly tender with incisions intact. Positive bowel sounds 4 noted. General gastrointestinal: Present: normal bowel sounds - Labs CBC & Chem 7: 04/19/23 05:41 Labs: Abnormal Lab Results - Last 24 Hours (Table) 04/19/23 Range/Units 05:41 WBC 10.92 H (4.50-10.00) X 10*3/uL RBC 3.76 L (4.10-5.20) X 10*6/uL Hgb 10.4 L (12.0-15.0) d/dL Hct 32.1 L (37.2-46.3) % Assessment and Plan Assessment: Status post robotic total laparoscopic hysterectomy with bilateral salpingectomy and sacral colpopexy performed by Dr. Gore postoperative day #1 (1) Cystocele with uterine prolapse Current Visit: No Status: Acute Code(s): N81.4 - UTEROVAGINAL PROLAPSE, UNSPECIFIED SNOMED Code(s): 7430810324 (2) Rectocele Current Visit: No Status: Acute Code(s): N81.6 - RECTOCELE SNOMED Code(s): 9292430 (3) Urinary incontinence Current Visit: No Status: Acute Code(s): R32 - UNSPECIFIED URINARY INCONTINENCE SNOMED Code(s): 134417335 (4) Menorrhagia Current Visit: No Status: Acute Code(s): N92.0 - EXCESSIVE AND FREQUENT MENSTRUATION WITH REGULAR CYCLE SNOMED Code(s): 542074655 Plan: Will work on pain control today. Patient is on Mylicon as needed for gas pain. If she does feel better later today, she potentially could go home when cleared by Dr. gore. If she does need to stay 1 more day, that is fine. Dr. Marsh will be production planning supervisor this weekend.
[2023-04-19] MEDS: SIMETHICONE 80 MG CHEWABLE PO PRN ×2 (12:04→17:35)
--- NOTE | 2023-04-19 13:26 | P.PN ---
Subjective Progress Note Date: 04/19/23 postoperative day #1 status post robotic sacral colpopexy . Was having pain this morning, requiring IV pain medications. Denies any nausea or vomiting Objective - Vital Signs Vital signs: Vital Signs Temp 97.8 F 04/19/23 07:23 Pulse 55 L 04/19/23 07:23 Resp 18 04/19/23 07:23 BP 96/59 04/19/23 07:23 Pulse Ox 98 04/19/23 07:23 FiO2 Intake & Output 04/18/23 04/19/23 04/19/23 18:59 06:59 18:59 Intake Total 205 240 Output Total 650 Balance 1407 240 Weight 63.9 kg Intake: IV 2056 Intake, IV Titration 240 Amount Lactated Ringers 1,000 ml 240 @ 0 mls/hr IV .[facility] Rx#:[id number] Output: Urine 570 Uretheral (Love) 45 Estimated Blood Loss 80 - Constitutional General appearance: Present: no acute distress - Gastrointestinal General gastrointestinal: Present: soft, tenderness (along the incision) - Labs CBC & Chem 7: 04/19/23 05:41 Labs: Abnormal Lab Results - Last 24 Hours (Table) 04/19/23 Range/Units 05:41 WBC 10.92 H (4.50-10.00) X 10*3/uL RBC 3.76 L (4.10-5.20) X 10*6/uL Hgb 10.4 L (12.0-15.0) d/dL Hct 32.1 L (37.2-46.3) % Assessment and Plan Assessment: status post robotic sacral colpopexy, with a robotic hysterectomy done by Dr. Ramey. Having postoperative pain, if pain is improved later today she is okay for discharge, but if continues having pain then we'll plan to keep her for 1 more day
[2023-04-19] MEDS: IBUPROFEN 600 MG TAB PO PRN (16:00)
[2023-04-20] MEDS ORDERED: SODIUM CHLORIDE 0.9% 500 ML 500 ML IV ONE (01:34)
[2023-04-20] MEDS: ACETAMINOPHEN TAB 325 MG TAB PO PRN (02:12)
[2023-04-20] MEDS: LACTATED RINGERS 1,000 ML IV SCH (02:12)
[2023-04-20 02:32] VITALS: PULSE 54; RESP 16
[2023-04-20] MEDS: IBUPROFEN 600 MG TAB PO PRN (05:46)
--- NOTE | 2023-04-20 06:59 | P.PN ---
Progress Note - Text Progress Note Date: 04/20/23 Postoperative day #2. Patient states that she's feeling markedly better today and her pain has improved dramatically. She has only been taking Motrin for pain control. She is ambulating and urinating without difficulty. She is tolerating regular diet. Vital signs are stable and she's afebrile. Plan today is to continue routine postoperative care discharge home this morning.
--- NOTE | 2023-04-20 07:05 | P.DS ---
Providers Date of admission: 04/18/23 09:40 Expected date of discharge: 04/20/23 Attending physician: Guy Gore MD Primary care physician: Stated None Hospital Course: Please see dictated H&P and operative note per Dr. Ramey on this patient's admission. This patient is a pleasant 33-year-old female who is admitted for laparoscopic hysterectomy concurrent surgery with urology. Patient did well however postoperatively was having quite a bit of pain on postoperative day #1. Patient was tolerating regular diet and urinating without difficulty. On postoperative day #2 she was feeling much better felt be stable for discharge home follow up with Dr. Ramey in 1 week. Procedures: Total laparoscopic hysterectomy and colposacral suspension Patient Condition at Discharge: Good Plan - Discharge Summary Discharge Rx Participant: No New Discharge Prescriptions: New oxyCODONE HCL [OxyIR] 5 mg PO Q6HR PRN #18 tab PRN Reason: Pain Ibuprofen [Motrin] 600 mg PO Q6HR PRN #60 tab PRN Reason: Mild Discomfort Discharge Medication List Ibuprofen [Motrin] 600 mg PO Q6HR PRN #60 tab 04/19/23 [Rx] oxyCODONE HCL [OxyIR] 5 mg PO Q6HR PRN #18 tab 04/19/23 [Rx] Follow up Appointment(s)/Referral(s): Mela Ramey DO [Doctor of Osteopathic Medicine] - 04/26/23 9:00 am Activity/Diet/Wound Care/Special Instructions: Activity as tolerated. Diet as tolerated. May shower, but no tub baths for 1 week. No heavy lifting or strenuous activity for at least 1 week. Discharge Disposition: HOME SELF-CARE
[2023-04-20 07:34] VITALS: BP 99/62; TEMP 98.1
[2023-04-20] MEDS: SENNOSIDES-DOCUSATE SODIUM 1 EACH TAB PO SCH (08:24)
== END 2023-04-20 09:37 | disposition home or self-care (01) ==
LOC: OR 05:33 → 5NMEDONC 09:40
PROVIDERS: ADMIT Urology; ATTEND Urology
DX: N81.4 Uterovaginal prolapse, unspecified (principal); N39.3 Stress incontinence (female) (male); D25.1 Intramural leiomyoma of uterus; G89.18 Other acute postprocedural pain; N92.0 Excessive and frequent menstruation with regular cycle; Q51.3 Bicornate uterus; Q52.129 Other and unspecified longitudinal vaginal septum; N83.202 Unspecified ovarian cyst, left side; N89.9 Noninflammatory disorder of vagina, unspecified; K59.00 Constipation, unspecified; A60.09 Herpesviral infection of other urogenital tract; Q60.0 Renal agenesis, unilateral; Z88.0 Allergy status to penicillin; Z87.891 Personal history of nicotine dependence
CPT/HCPCS: 57130; 57425; 58571; S2900; 64999; 81025; 85025; 88307